=== PATIENT | female | born 1990 | race African-American/Black ===

== ENCOUNTER 2017-05-12 11:24 | Emergency (ER) | payer OTHER ==
--- NOTE | 2017-05-12 11:39 | PDOC ---
History of Present Illness - General History Source: Patient Exam Limitations: No Limitations - History of Present Illness Initial Comments: 05/12/17 12:31 The patient is a 26 year old female with a significant past medical history of asthma, and anemia, presenting to the Emergency Department with abdominal pain and vomiting for the past few days. The patient describes the abdominal pain as lower abdominal pain and epigastric burning exacerbated by eating. She admits to nausea, and vomiting after eating, as well as intermittent diarrhea. She states that her LMP was sometime this month. The patient denies dysuria, vaginal discharge, and urinary frequency. Patient denies fever, cough, and chills. Patient denies headache, or dizziness. Patient denies shortness of breath, or chest pain. PCP: Dr. Federico Gray Hx: current every day cigarette smoker Surgical Hx: x2 <Siri Serrano - Last Filed: 05/12/17 12:45> <Treasure Garrett - Last Filed: 05/12/17 13:36> - General Chief Complaint: Pain Stated Complaint: ABDOMINAL PAIN Time Seen by Provider: 05/12/17 11:39 Past History <Siri Serrano - Last Filed: 05/12/17 12:45> - Past Medical History Anemia: Yes Asthma: Yes (last attack 1 year ago) Cancer: No Cardiac Disorders: No Diabetes: No HTN: No Suicide Attempt (Hx): No Seizures: No Thyroid Disease: No - Reproductive History (#): 6 Para: 1 Cervical CA: No Dysfunctional Uterine Bleeding: No Ectopic : No Endometrial CA: No Polycystic Ovaries: No Therapeutic (s) & number: No Tubal Ligation: No Spontaneous : 3 - Immunization History Immunization Up to Date: Yes - Psycho/Social/Smoking Cessation Hx Anxiety: No Suicidal Ideation: No Smoking History: Never smoked Have you smoked in the past 12 months: No Number of Cigarettes Smoked Daily: 5 Hx Alcohol Use: No Drug/Substance Use Hx: No Substance Use Type: None Hx Substance Use Treatment: No <Treasure Garrett - Last Filed: 05/12/17 13:36> - Past Medical History Allergies/Adverse Reactions: Allergies Allergy/AdvReac Type Severity Reaction Status Date / Time Penicillins Allergy Hives Verified 05/12/17 11:44 SEAFOOD Allergy Hives Uncoded 05/12/17 11:44 Home Medications: Ambulatory Orders Albuterol Sulfate Inhaler - [Ventolin Hfa Inhaler -] 2 inh PO Q4H PRN 05/12/17 Review of Systems - Review of Systems Able to Perform ROS?: Yes Comments:: 05/12/17 12:32 CONSTITUTIONAL: Absent: fever, no chills, no fatigue EYES: Absent: visual changes ENT: Absent: ear pain, no sore throat CARDIOVASCULAR: Absent: chest pain, no palpitations RESPIRATORY: Absent: cough, no SOB GI: Present: + nausea, + vomiting, + diarrhea, + lower abdominal pain, + epigastric burning Absent: no constipation GENITOURINARY: Absent: dysuria, no frequency, no hematuria MUSCULOSKELETAL: Absent: back pain, no arthralgia, no myalgia SKIN: Absent: rash NEURO: Absent: headache <Siri Serrano - Last Filed: 05/12/17 12:45> *Physical Exam - Vital Signs Last Vital Signs Temp Pulse Resp BP Pulse Ox 98.3 F 74 18 106/82 98 05/12/17 11:37 05/12/17 11:37 05/12/17 11:37 05/12/17 11:37 05/12/17 11:37 - Physical Exam Comments: 05/12/17 12:45 GENERAL: Well-appearing, well-nourished. No apparent distress. HEENT: Normocephalic, atraumatic. PERRL, EOM intact. CARDIOVASCULAR: Normal S1, S2. Regular rate and rhythm. PULMONARY: Clear to auscultation bilaterally. ABDOMEN: Mild diffuse tenderness to deep palpation. Soft, non-distended. EXTREMITIES: Normal ROM in all four extremities. No gross deformities. SKIN: Warm, dry. No rash NEUROLOGICAL: No focal neurological deficits. <Siri Serrano - Last Filed: 05/12/17 12:45> ED Treatment Course - LABORATORY CBC & Chemistry Diagram: 05/12/17 12:15 05/12/17 12:15 <Siri Serrano - Last Filed: 05/12/17 12:45> - LABORATORY CBC & Chemistry Diagram: 05/12/17 12:15 05/12/17 12:15 <Treasure Garrett - Last Filed: 05/12/17 13:36> Medical Decision Making - Medical Decision Making 05/12/17 12:59 Pt presents to the ED complaining of diffuse abdominal pain for the last three days. Denies vomiting or fever. Denies urinary complaints. Mildly tender to deep palpation diffusely. Describes primarily burning epigastric pain that may be secondary to GERD. Patient is not . Will check labs to evaluate for pancreatits or biliary disease, do pelvic exam, likely discharge if labs are negative. <Treasure Garrett - Last Filed: 05/12/17 13:36> *DC/Admit/Observation/Transfer - Attestations Scribe Attestion: 05/12/17 12:33 Documentation prepared by Siri Serrano, acting as director of medical services for Treasure Garrett MD. <Siri Serrano - Last Filed: 05/12/17 12:45> <Treasure Garrett - Last Filed: 05/12/17 13:36> Diagnosis at time of Disposition: Abdominal pain Qualifiers: Abdominal location: generalized Qualified Code(s): R10.84 - Generalized abdominal pain - Discharge Dispostion Disposition: HOME Condition at time of disposition: Good - Referrals Referrals: Tamara Caballero [Primary Care Provider] - - Patient Instructions Printed Discharge Instructions: DI for Abdominal Pain-Adult
[2017-05-12 11:43] VITALS: BMI 46.3
[2017-05-12 12:25] LABS: BASOPHIL 0.3 % (0-2.0); EOSINOPHIL 2.7 % (0-4.5); MCH 28.4 pg (25.7-33.7); MCHC 32.5 g/dl (32.0-36.0); MEAN CELL VOLUME 87.6 fl (80-96); MEAN PLT VOLUME 7.2 fl (7.5-11.1); NEUTROPHILS 64.1 % (42.8-82.8); PLATELET COUNT 240 K/MM3 (134-434); RDW 15.3 % (11.6-15.6); WHITE BLOOD COUNT 6.2 K/mm3 (4.0-10.0)
[2017-05-12 12:40] LABS: URINE APPEARANCE SLCLOUDY; URINE BILIRUBIN NEGATIVE (NEGATIVE); URINE BLOOD NEGATIVE (NEGATIVE); URINE COLOR YELLOW; URINE GLUCOSE (UA) NEGATIVE (NEGATIVE); URINE KETONE TRACE (NEGATIVE); URINE NITRITE NEGATIVE (NEGATIVE); URINE UROBILINOGEN 2.0 E.U/dl E.U./dl (0.2-1.0)
[2017-05-12 12:44] LABS: ALBUMIN 3.2 g/dl (3.4-5.0); ANION GAP 7 (8-16); BILIRUBIN,TOTAL 0.6 mg/dL (0.2-1.0); CALCIUM 9.3 mg/dL (8.5-10.1); CO2 29 mmol/L (21-32); CREATININE 0.6 mg/dL (0.55-1.02); GLUCOSE,RANDOM 83 mg/dL (74-106); SGPT/ALT 18 U/L (12-78); TOT PROT 7.5 g/dl (6.4-8.2)
[2017-05-12 12:45] LABS: ALK PHOS 90 U/L (45-117)
[2017-05-12 12:49] LABS: URINE LEUK ESTERASE 1+ (NEGATIVE); URINE PROTEIN 1+ (NEGATIVE)
[2017-05-12 12:52] LABS: SGOT/AST 32 U/L (15-37)
[2017-05-12 12:58] LABS: HIV 1 & 2 AB NEGATIVE; HIV 1 AGp24 NEGATIVE
[2017-05-12] MEDS ORDERED: FAMOTIDINE 20 MG/50 ML IVPB 50 ML IVPB ONE (13:42)
[2017-05-12] MEDS ORDERED: FAMOTIDINE 20 MG/50 ML IVPB 50 ML IVPB SCH (13:45)
[2017-05-12 14:18] VITALS: BP 116/60; PULSE 76; TEMP 98.4
== END 2017-05-12 14:54 | disposition home or self-care (01) ==
LOC: JER 11:24
PROC: 3E033GC Introduction of Other Therapeutic Substance into Peripheral Vein, Percutaneous Approach (ICD-10-PCS; principal; 2017-05-12)
DX: R10.84 Generalized abdominal pain (principal); J45.909 Unspecified asthma, uncomplicated; D64.9 Anemia, unspecified
CPT/HCPCS: 36415; 80053; 81003; 81015; 83690; 84703; 85025; 87389; 87491; 87591; 96365; 99283-25

== ENCOUNTER 2017-06-20 00:42 | Emergency (ER) | payer OTHER ==
--- NOTE | 2017-06-20 01:35 | PDOC ---
History of Present Illness - General Stated Complaint: ANKLE INJURY Time Seen by Provider: 06/20/17 01:15 History Source: Patient Exam Limitations: No Limitations - History of Present Illness Initial Comments: CHIEF COMPLAINT: 26 y/o morbidly obese female with PMH asthma c/o right ankle pain since slip and fall tonight. HISTORY OF PRESENT ILLNESS: The patient states the ground was uneven and she twisted her right ankle in an inversion fashion. She has not tried to walk on it because it hurts. She denies numbness/tingling. She has not taken anything for the pain. Vital signs on arrival are notable for pulse of 108. REVIEW OF SYSTEMS: GENERAL/CONSTITUTIONAL: No fever/chills. No weakness. No weight change. MUSCULOSKELETAL: +right ankle pain and swelling. No neck or back pain. SKIN: No rash or easy bruising. NEUROLOGIC: No headache, vertigo, loss of consciousness, or loss of sensation. PHYSICAL EXAM: VITAL_SIGNS: within normal limits GENERAL_APPEARANCE: alert, cooperative, no obvious discomfort. The patient is morbidly obese, in a wheelchair. MENTAL_STATUS: speech clear, oriented X 3, responds appropriately to questions. NEURO: motor intact and sensory intact in injured extremity. EXTREMITIES: 2+ right dorsalis pedis pulse. Minimal edema to right lateral malleolus with reproducible pain with palpation of that area. No erythema, warmth or obvious deformities. Full inversion, eversion, plantar and dorsi flexion of right ankle. SKIN: warm, dry, good color. Past History - Past Medical History Allergies/Adverse Reactions: Allergies Allergy/AdvReac Type Severity Reaction Status Date / Time Penicillins Allergy Hives Verified 05/12/17 11:44 SEAFOOD Allergy Hives Uncoded 05/12/17 11:44 Home Medications: Ambulatory Orders Albuterol Sulfate Inhaler - [Ventolin Hfa Inhaler -] 2 inh PO Q4H PRN 05/12/17 Anemia: Yes Asthma: Yes (last attack 1 year ago) Cancer: No Cardiac Disorders: No Diabetes: No HTN: No Suicide Attempt (Hx): No Seizures: No Thyroid Disease: No - Reproductive History (#): 6 Para: 1 Cervical CA: No Dysfunctional Uterine Bleeding: No Ectopic : No Endometrial CA: No Polycystic Ovaries: No Therapeutic (s) & number: No Tubal Ligation: No Spontaneous : 3 - Immunization History Immunization Up to Date: Yes - Psycho/Social/Smoking Cessation Hx Anxiety: No Suicidal Ideation: No Smoking History: Never smoked Have you smoked in the past 12 months: No Number of Cigarettes Smoked Daily: 5 'Breaking Loose' booklet given: 05/12/17 Hx Alcohol Use: No Drug/Substance Use Hx: No Substance Use Type: None Hx Substance Use Treatment: No Medical Decision Making - Medical Decision Making A/P: 26 y/o afebrile female with most likely right ankle sprain. Plan is as follows: 1. xray right ankle/foot Xray right foot/ankle IMPRESSION: No acute fracture. Will discharge the patient to home with dx of ankle sprain. Will provide aircast. Suggested RICE instructions. Pt given referral to ortho and instructed to f/u within 2 weeks if no improvement in symptoms. The patient verbalizes understanding of all instructions, has no further questions and is awaiting discharge. *DC/Admit/Observation/Transfer Diagnosis at time of Disposition: Right ankle sprain Qualifiers: Encounter type: initial encounter Involved ligament of ankle: unspecified ligament Qualified Code(s): S93.401A - Sprain of unspecified ligament of right ankle, initial encounter - Discharge Dispostion Disposition: HOME Condition at time of disposition: Good - Referrals Referrals: Tamara Caballero [Primary Care Provider] - Chato Juarez MD [Staff Physician] - 14 days - Patient Instructions Printed Discharge Instructions: DI for Ankle Sprain, How To Perform RICE (Rest , Ice, Compress, Elevate) Additional Instructions: Discharge Instructions: -Use aircast for comfort -Follow RICE instructions -Take Motrin if needed every 6 hours for pain -If no improvement in symptoms in [address] Juarez for follow up appointment
[2017-06-20 02:36] VITALS: BP 120/88; PULSE 76; TEMP 98.1; BMI 36.6
== END 2017-06-20 02:42 | disposition home or self-care (01) ==
LOC: JER 00:42
PROC: 2W3QX1Z Immobilization of Right Lower Leg using Splint (ICD-10-PCS; principal; 2017-06-20)
DX: S93.401A Sprain of unspecified ligament of right ankle, initial encounter (principal); X50.1XXA Overexertion from prolonged static or awkward postures, initial encounter; W18.39XA Other fall on same level, initial encounter; Y93.89 Activity, other specified; Y92.480 Sidewalk as the place of occurrence of the external cause
CPT/HCPCS: 73610-TC-RT; 73630-TC-RT; 99282-25

== ENCOUNTER 2019-10-25 16:28 | Emergency (ER) | payer OTHER ==
[2019-10-25 16:37] VITALS: TEMP 98.7; BMI 48.5
[2019-10-25 17:34] LABS: BASO % 0.4 % (0-2.0); EOS % 2.7 % (0-4.5); HEMATOCRIT 39.8 % (32.4-45.2); HEMOGLOBIN 12.7 GM/dL (10.7-15.3); LYMPH % 33.6 % (8-40); MCH 27.3 pg (25.7-33.7); MCHC 31.9 g/dl (32.0-36.0); MEAN CELL VOLUME 85.7 fl (80-96); MEAN PLT VOLUME 6.7 fl (7.5-11.1); NEUT % 58.3 % (42.8-82.8); PLATELET COUNT 279 K/MM3 (134-434); RBC 4.64 M/mm3 (3.60-5.2); RDW 17.2 % (11.6-15.6); WHITE BLOOD COUNT 7.4 K/mm3 (4.0-10.0)
[2019-10-25 17:36] LABS: EPI CELLS 1.6 /HPF (0-5/HPF); HYALINE CASTS 0 /lpf (0-8); PH,URINE 8.5 (5.0-8.0); URINE APPEARANCE CLOUDY; URINE BACTERIA 29.2 /hpf (NEGATIVE); URINE BILIRUBIN NEGATIVE (NEGATIVE); URINE COLOR RED; URINE GLUCOSE (UA) NEGATIVE (NEGATIVE); URINE KETONE NEGATIVE (NEGATIVE); URINE LEUK ESTERASE TRACE (NEGATIVE); URINE NITRITE NEGATIVE (NEGATIVE); URINE PROTEIN TRACE (NEGATIVE); URINE RBC 653 /hpf (0-4); URINE WBC 4 /hpf (0-5)
[2019-10-25] MEDS ORDERED: ACETAMINOPHEN 1000 MG/100 ML VIAL (NON FORMULARY) IVPB ONE (17:36)
--- NOTE | 2019-10-25 17:38 | PDOC ---
Documentation entered by Maria A Spears SCRIBE, acting as scribe for Katy Arambula MD. Katy Arambula MD: This documentation has been prepared by the scribe, Maria A Spears SCRIBE, under my direction and personally reviewed by me in its entirety. I confirm that the documentation accurately reflects all work, treatment, procedures, and medical decision making performed by me. Attending Attestation - Resident Resident Name: Chato Ruffin - ED Attending Attestation I have performed the following: I have examined & evaluated the patient, The case was reviewed & discussed with the resident, I agree w/resident's findings & plan, Exceptions are as noted - HPI HPI: 10/25/19 18:05 The patient is a 29-year-old female, with no reported past medical history who presents to the emergency department with vaginal bleeding. The patient reports a history of high-risk , secondary to loss of amniotic fluids, for which the was induced. LMP: 8 weeks ago by the day. SHIP RIGGER: at [address] [facility]. - Physicial Exam PE: 10/25/19 18:06 GENERAL: Well-appearing, well-nourished. No apparent distress. HEENT: Normocephalic, atraumatic. PERRL, EOM intact. CARDIOVASCULAR: Normal S1, S2. Regular rate and rhythm. PULMONARY: Clear to auscultation bilaterally. ABDOMEN: Soft, non-distended, non-tender. PELVIC EXAM: Os closed, no large clot, little blood in the vault, no CMT tenderness. EXTREMITIES: Normal ROM in all four extremities. No gross deformities. SKIN: Warm, dry. No rash NEUROLOGICAL: No focal neurological deficits. - Medical Decision Making 10/25/19 17:29 29 yo female presents stating she may be having an miscarriage no lg clots blood in the vault no CMT bi devang exam follows t [address] [facility] threatened ab vs ectopic preg plan cg, t& S, US pelvic 10/25/19 17:37 10/25/19 18:42 Transvaginal ultrasound shows a thickened endometrium, no visible gestational sac within the uterus. An ectopic cannot be ruled out. No free fluid in the cul-de-sac and both ovaries are normal in appearance 10/25/19 18:45 Blood type O+ Beta-hCG 1251 10/25/19 18:46 The patient will have to have a repeat beta-hCG repeat pelvic ultrasound in 48 hours to help rule out ectopic. Impression threatened AB versus ectopic Patient needs follow-up with [facility] in 48 hours or return to the emergency department for repeat imaging and beta-hCG
[2019-10-25] MEDS ORDERED: ACETAMINOPHEN INJECTION 100 ML IVPB ONE (17:48)
--- NOTE | 2019-10-25 17:55 | PDOC ---
History of Present Illness - General Chief Complaint: Vaginal Bleeding Stated Complaint: MISCARRIAGE Time Seen by Provider: 10/25/19 16:44 History Source: Patient Exam Limitations: No Limitations - History of Present Illness Initial Comments: 10/26/19 13:39 HPI: 29F A2 at 8wk gestation by dates, LMP "2 months ago," c/o 1 day of vaginal bleeding and abdominal cramping. Bleeding started when patient woke up around 11 :30, initially light then became heavier w/ clot passage. Pt went to toilet and did not use pads to quantify bleeding. Denies f/c, cp/palpitations/sob, lightheadedness, dizziness, headache. Endorses dysuria today. Abd cramping is suprapubic, constant, worse than period pain. Hx 2 c-sections, 2 elective D&C, 1 high risk 2/2 loss of amniotic fluid. Monogamous, no concerns for STI. PMH: Asthma MEDs: albuterol Allergies reviewed - Penicillin Endorses smoking Past History - Past Medical History Allergies/Adverse Reactions: Allergies Allergy/AdvReac Type Severity Reaction Status Date / Time Penicillins Allergy Hives Verified 10/25/19 16:37 SEAFOOD Allergy Hives Uncoded 10/25/19 16:37 Home Medications: Ambulatory Orders Albuterol Sulfate Inhaler - [Ventolin Hfa Inhaler -] 2 inh PO Q4H PRN 05/12/17 Anemia: Yes Asthma: Yes (last attack 1 year ago) Cancer: No Cardiac Disorders: No COPD: No Diabetes: No HTN: No Seizures: No Thyroid Disease: No - Reproductive History (#): 6 Para: 1 Cervical CA: No Dysfunctional Uterine Bleeding: No Ectopic : No Endometrial CA: No Polycystic Ovaries: No Therapeutic (s) & number: No Tubal Ligation: No Spontaneous : 3 - Immunization History Immunization Up to Date: Yes - Psycho Social/Smoking Cessation Hx Smoking History: Never smoked Have you smoked in the past 12 months: No Number of Cigarettes Smoked Daily: 10 'Breaking Loose' booklet given: 05/12/17 Hx Alcohol Use: No Drug/Substance Use Hx: No Substance Use Type: None Hx Substance Use Treatment: No Review of Systems - Review of Systems Able to Perform ROS?: Yes Comments:: 10/26/19 13:40 ROS: CONSTITUTIONAL: Denies F / C HEENT: Denies headache, lightheadedness, dizziness, changes in vision / hearing , diplopia, blurry vision RESP: Denies SOB, cough CARD: Denies chest pain, palpitations GI: Endorses AM nausea (no current sx). Endorses abdominal cramping. Denies V / D, bloody stool, inability to tolerate PO : Endorses vaginal bleeding, dysuria today. Denies frequency. SKIN: Denies rashes Is the patient limited [place] proficient: No *Physical Exam - Vital Signs Last Vital Signs Temp Pulse Resp BP Pulse Ox 98.7 F 83 14 115/73 100 10/25/19 16:35 10/25/19 16:40 10/25/19 16:35 10/25/19 16:40 10/25/19 16:35 - Physical Exam 10/26/19 13:40 PE: GEN: NAD, tearful. AAOx3 HEENT: NC/AT. No facial asymmetry. Normal voice. Supple neck w/ FROM. CV: S1/S2, RRR, no m/r/g LUNG: CTAB, no wheezes, crackles, rales, rhonchi. GI: soft, ndnt, +BS, no guarding, no rebound. Neg CVAT b/l. PELVIC: No discharge, bleeding, and atrophy on inspection. Cervical os not well visualized. There is blood in vault. Neg CMT on bimanual exam. EXTREMITIES: No obvious deformities of all extremities. SKIN: warm, dry, normal turgor PSYCH: normal mood and affect; tearful NEURO: Moving all extremities well. Ambulates w/ normal gait. ED Treatment Course - LABORATORY CBC & Chemistry Diagram: 10/25/19 17:15 10/25/19 17:15 - RADIOLOGY Radiology Studies Ordered: Category Date Time Status TRANSVAGINAL US PREG [US] Stat Ultrasound 10/25/19 17:11 Ordered Medical Decision Making - Medical Decision Making 10/25/19 17:33 MDM: 29F A2 at 8wk gestation by dates with one day of vaginal bleeding and cramping. Blood in vault, neg CMT. DDx likely threatened ; consider ectopic - CBC, CMP, T&S, hCG - UA, UC - TVUS - Pain ctrl 10/25/19 18:52 TVUS IOC IMPRESSION: Thickened endometrium. No visible gestational sac within the uterus. An ectopic cannot be excluded. No fluid in the cul-de-sac. Both ovaries are normal in appearance. labs reviewed; hGB 1251.5 DC home w/ strict return precautions and 48h f/u at OB or ED for levels and rpt TVUS Discharge - Discharge Information Problems reviewed: Yes Clinical Impression/Diagnosis: Threatened Condition: Stable Disposition: HOME - Admission No - Follow up/Referral - Patient Discharge Instructions Patient Printed Discharge Instructions: DI for Threatened Additional Instructions: A copy of your ultrasound was provided to you along with your level. Your level today 10/25/19 was: B hCG 1251.5 Take Tylenol as directed on the label for pain. RETURN TO THE EMERGENCY DEPARTMENT OR YOUR CLAIM PROCESSOR IN 48 HOURS FOR FOLLOW UP OF THESE LEVELS AND ANOTHER ULTRASOUND. IMMEDIATELY RETURN TO THE EMERGENCY DEPARTMENT IF YOU EXPERIENCE ANY OF THE FOLLOWING: - WORSENING PAIN - HEAVY BLEEDING (SOAKING 1 PAD AN HOUR FOR 2 STRAIGHT HOURS) - CHEST PAIN, SHORTNESS OF BREATH, FAINTING - ANYTHING THAT CONCERNS YOU - Post Discharge Activity
[2019-10-25 18:32] LABS: ALBUMIN 3.2 g/dl (3.4-5.0); BILIRUBIN,TOTAL 0.4 mg/dL (0.2-1); BLOOD UREA NITROGEN 8.6 mg/dL (7-18); CALCIUM 8.8 mg/dL (8.5-10.1); CREATININE 0.6 mg/dL (0.55-1.3); POTASSIUM 4.2 mmol/L (3.5-5.1); TOT PROT 6.9 g/dl (6.4-8.2)
[2019-10-25 19:22] VITALS: BP 118/83; PULSE 62
== END 2019-10-25 19:23 | disposition home or self-care (01) ==
LOC: JER 16:28
PROC: 3E033NZ Introduction of Analgesics, Hypnotics, Sedatives into Peripheral Vein, Percutaneous Approach (ICD-10-PCS; principal; 2019-10-25)
DX: O20.0 Threatened abortion (principal); Z3A.08 8 weeks gestation of pregnancy; Z88.0 Allergy status to penicillin; Z91.013 Allergy to seafood
CPT/HCPCS: 36415; 76817-TC; 80053; 81003; 84702; 85025; 86850; 86900; 86901; 87086; 96374; 99283-25; J0131

== ENCOUNTER 2019-10-28 10:19 | Emergency (ER) | payer OTHER ==
[2019-10-28 10:28] VITALS: BP 108/70; PULSE 68; TEMP 97.7; BMI 48.5
--- NOTE | 2019-10-28 10:38 | PDOC ---
History of Present Illness - General Chief Complaint: [facility] [place] Stated Complaint: BETA HCG LEVEL CHECK Time Seen by Provider: 10/28/19 10:27 History Source: Patient - History of Present Illness Timing/Duration: other Past History - Past Medical History Allergies/Adverse Reactions: Allergies Allergy/AdvReac Type Severity Reaction Status Date / Time Penicillins Allergy Hives Verified 10/28/19 10:28 SEAFOOD Allergy Hives Uncoded 10/28/19 10:28 Home Medications: Ambulatory Orders Albuterol Sulfate Inhaler - [Ventolin Hfa Inhaler -] 2 inh PO Q4H PRN 05/12/17 Anemia: Yes Asthma: Yes (last attack 1 year ago) Cancer: No Cardiac Disorders: No COPD: No Diabetes: No HTN: No Seizures: No Thyroid Disease: No - Reproductive History (#): 6 Para: 1 Cervical CA: No Dysfunctional Uterine Bleeding: No Ectopic : No Endometrial CA: No Polycystic Ovaries: No Therapeutic (s) & number: No Tubal Ligation: No Spontaneous : 3 - Immunization History Immunization Up to Date: Yes - Psycho Social/Smoking Cessation Hx Smoking History: Never smoked Have you smoked in the past 12 months: No Number of Cigarettes Smoked Daily: 10 Information on smoking cessation initiated: No 'Breaking Loose' booklet given: 05/12/17 Hx Alcohol Use: No Drug/Substance Use Hx: No Substance Use Type: None Hx Substance Use Treatment: No Review of Systems - Review of Systems Constitutional: No: Fever ABD/GI: No: Nausea, Vomiting, Abdominal cramping : No: Dysuria *Physical Exam - Vital Signs Last Vital Signs Temp Pulse Resp BP Pulse Ox 97.7 F 68 19 108/70 100 10/28/19 10:25 10/28/19 10:25 10/28/19 10:25 10/28/19 10:25 10/28/19 10:25 - Physical Exam General Appearance: Yes: Appropriately Dressed. No: Apparent Distress HEENT: positive: Normal Voice Neck: positive: Supple Respiratory/Chest: negative: Respiratory Distress Gastrointestinal/Abdominal: positive: Normal Bowel Sounds, Soft. negative: Tender, Distended, Guarding, Rebound Integumentary: positive: Dry, Warm Neurologic: positive: Fully Oriented, Alert, Normal Mood/Affect ED Treatment Course - RADIOLOGY Radiology Studies Ordered: Category Date Time Status TRANSVAGINAL US PREG [US] Stat Ultrasound 12/04/19 10:35 Ordered Medical Decision Making - Medical Decision Making 10/28/19 13:42 29 F, , ~8 weeks by dates, seen in ED 3 days ago for vag bleed/cramping. 1200 w/ no IUP on US, told to return today for f/u beta/ and US. Ucx neg for growth aand RH + on pror visit. ates she continues to have some bleeding, no clots and states abdominal cramping has since improved. No nausea vomiting fever or chills M/l spon AB Beta >100 today, was >1200 on prior visit No IUP or adnexal abnl on US -Dc to f/u with OB at this point to continue trending beta Discharge - Discharge Information Problems reviewed: Yes Clinical Impression/Diagnosis: Spontaneous Condition: Good Disposition: HOME - Follow up/Referral - Patient Discharge Instructions Patient Printed Discharge Instructions: Miscarriage Additional Instructions: Beta today was only 195 down from over 12,000 on your prior visit. Ultrasound done today shows no evidence of a . This most likely means you having a miscarriage. You need to follow-up with your OB at this point to trend your beta hCG - Post Discharge Activity
== END 2019-10-28 13:00 | disposition left against medical advice (07) ==
LOC: JERFT 10:19
DX: O03.9 Complete or unspecified spontaneous abortion without complication (principal); Z88.0 Allergy status to penicillin; Z91.013 Allergy to seafood
CPT/HCPCS: 36415; 76817-TC; 84702; 99281-25

== ENCOUNTER 2020-08-09 17:25 | Emergency (ER) | payer OTHER ==
--- NOTE | 2020-08-09 17:45 | PDOC ---
Rapid Medical Evaluation Time Seen by Provider: 08/09/20 17:44 Medical Evaluation: Allergies Allergy/AdvReac Type Severity Reaction Status Date / Time Penicillins Allergy Hives Verified 08/09/20 17:44 SEAFOOD Allergy Hives Uncoded 08/09/20 17:44 08/09/20 17:44 I have performed a brief in-person evaluation of this patient The patient presents with a chief complaint of: Irreg vag bleeding x 6 month while on depo. Have [facility] appt this Saturday to switch control but states she woke up feeling dizzy and weak today. H/o ectopic 6 months ago, s/p L sapingectomy and placed on depo then. Also has h/o anemia s/p blood transfusion x 2 and non-compliant w/ her iron 2/2 "stomach issues". Has numerous psych e ncounters here but unable to see records Pertinent physical exam findings:stable, NAD, alert I have ordered the following:labs/urine The patient will proceed to the ED for further evaluation Discharge Disposition - Diagnosis DUB (dysfunctional uterine bleeding), Weakness - Referrals - Patient Instructions - Post Discharge Activity
[2020-08-09 17:48] VITALS: BP 116/61; PULSE 76; TEMP 97.6; BMI 36.0
[2020-08-09 18:46] LABS: BASO % 0.7 % (0-2.0); EOS % 3.4 % (0-4.5); HEMATOCRIT 35.7 % (32.4-45.2); LYMPH % 29.8 % (8-40); MCH 29.2 pg (25.7-33.7); MCHC 33.5 g/dl (32.0-36.0); MEAN CELL VOLUME 87.1 fl (80-96); MEAN PLT VOLUME 6.5 fl (7.5-11.1); MONO % 3.7 % (3.8-10.2); NEUT % 62.4 % (42.8-82.8); PLATELET COUNT 279 K/MM3 (134-434); RDW 17.4 % (11.6-15.6); WHITE BLOOD COUNT 7.7 K/mm3 (4.0-10.0)
[2020-08-09 18:57] LABS: INR 1.16 (0.83-1.09); PROTHROMBIN TIME (PATIENT) 13.7 SEC (9.7-13.0)
--- NOTE | 2020-08-09 19:23 | PDOC ---
History of Present Illness - General Chief Complaint: Vaginal Bleeding Stated Complaint: WEAK Time Seen by Provider: 08/09/20 17:44 History Source: Patient - History of Present Illness Initial Comments: 08/09/20 20:00 29-year-old female complaining of return to the ER if you are soaking 2 pads per hour, severe abdominal pain, or worsening symptoms. For the last 6 months after stopping Depakote. Patient reports that she has been using a tampon changes the tampon a every 20 minutes or so. Patient reports that she is scheduled for [facility] visit however felt weakness today. Past History - Medical History Allergies/Adverse Reactions: Allergies Allergy/AdvReac Type Severity Reaction Status Date / Time Penicillins Allergy Hives Verified 08/09/20 17:44 SEAFOOD Allergy Hives Uncoded 08/09/20 17:44 Home Medications: Ambulatory Orders NK [No Known Home Medication] 08/09/20 Anemia: Yes (transfused twice in past) Asthma: Yes Cancer: No Cardiac Disorders: No COPD: No Diabetes: No HTN: No Seizures: No Thyroid Disease: No - Reproductive History Is Patient Now?: No (#): 7 Para: 2 Cervical CA: No Dysfunctional Uterine Bleeding: No Ectopic : Yes (01/2020) Endometrial CA: No Polycystic Ovaries: No Therapeutic (s) & number: No Tubal Ligation: No Spontaneous : 3 - Immunization History Immunization Up to Date: Yes - Psycho-Social/Smoking History Smoking History: Never smoked Have you smoked in the past 12 months: Yes Number of Cigarettes Smoked Daily: 10 Information on smoking cessation initiated: No 'Breaking Loose' booklet given: 01/30/20 - Substance Abuse Hx (Audit-C & DAST Scrn) How often the patient has a drink containing alcohol: Never Score: In Men: 4 or > Positive; In Women: 3 or > Positive: 0 Screen Result (Pos requires Nsg. Audit-10AR): Negative In the last yr the pt used illegal drug/Rx for NonMed reason: No Score: Yes response is considered Positive: 0 Screen Result (Positive result requires Nsg. DAST-10): Negative Review of Systems - Review of Systems Able to Perform ROS?: Yes Is the patient limited Algerian proficient: No Constitutional: No: Symptoms Reported, See HPI, Chills, Diaphoresis, Fever, Loss of Appetite, Malaise, Night Sweats, Weakness, Weight Stable, Unintentional Wgt. Loss, Unexplained wgt Loss, Other ABD/GI: Yes: Other (vaginal bleeding) *Physical Exam - Vital Signs Last Vital Signs Temp Pulse Resp BP Pulse Ox 97.6 F 76 16 116/61 99 08/09/20 17:45 08/09/20 17:45 08/09/20 17:45 08/09/20 17:45 08/09/20 17:45 - Physical Exam General Appearance: Yes: Appropriately Dressed Respiratory/Chest: positive: Lungs Clear, Normal Breath Sounds Female Pelvic Exam: positive: normal external exam, other (scANt amount of brown / red bleeding in vaginal vault. ) Gastrointestinal/Abdominal: positive: Normal Bowel Sounds, Soft. negative: Tender Musculoskeletal: negative: CVA Tenderness Extremity: positive: Normal Capillary Refill, Normal Inspection, Normal Range of Motion Integumentary: positive: Normal Color, Dry, Warm Neurologic: positive: Fully Oriented, Alert, Normal Mood/Affect ED Treatment Course - LABORATORY CBC & Chemistry Diagram: 08/09/20 18:30 08/09/20 18:30 - ADDITIONAL ORDERS Additional order review: Laboratory Results 08/09/20 08/09/20 18:48 18:30 PT with INR 13.70 H INR 1.16 H Urine HCG, Qual Negative 08/09/20 18:30 RBC 4.10 MCV 87.1 MCHC 33.5 RDW 17.4 H MPV 6.5 L Neutrophils % 62.4 D Lymphocytes % 29.8 D Monocytes % 3.7 L D Eosinophils % 3.4 D Basophils % 0.7 D ED Progress Note - Progress Note Progress Note: A: DUB: P: cbc cmp urine : negative Discharge - Discharge Information Problems reviewed: Yes Clinical Impression/Diagnosis: Weakness, DUB (dysfunctional uterine bleeding) Disposition: HOME - Follow up/Referral Referrals: Tamara Caballero [Primary Care Provider] - - Patient Discharge Instructions Patient Printed Discharge Instructions: DI for Vaginal Bleeding Additional Instructions: Follow-up with your primary doctor or costume cutter as soon as possible. return to the ER if you are soaking 2 pads per hour, severe abdominal pain, or worsening symptoms. - Post Discharge Activity Work/Back to School Note: Back to Work
[2020-08-09 19:25] LABS: ALBUMIN 3.1 g/dl (3.4-5.0); BILIRUBIN,TOTAL 0.3 mg/dL (0.2-1); BLOOD UREA NITROGEN 11.6 mg/dL (7-18); CALCIUM 8.9 mg/dL (8.5-10.1); CREATININE 0.8 mg/dL (0.55-1.3)
--- OUTSIDE RECORDS SUMMARY | 2020-08-09 19:37 | XMS ---
:1990 Author Organization [facility] Care Team Providers Name Role Phone Komannor, Andres Unavailable Unavailable Kovoor, Andres Unavailable Unavailable Kovoor, Andres Unavailable Unavailable Kovoor, Andres Unavailable Unavailable Kovoor, Andres Unavailable Unavailable Kovoor, Andres Unavailable Unavailable Kovoor, Andres Unavailable Unavailable Kovoor, Andres Unavailable Unavailable Kovoor, Andres Unavailable Unavailable Kovoor, Andres Unavailable Unavailable Kovoor, Andres Unavailable Unavailable Shamar Bourgeois Unavailable [phone] Rashaun Trujillo Unavailable Unavailable ED STAFF PHYSICIAN, STAFF Unavailable Unavailable Dang, Debbie Unavailable [phone] Adng, Debbie Unavailable [phone] Quinn Tate MD Unavailable Quinn Tate MD Unavailable Quinn Tate MD Unavailable Quinn Tate MD Unavailable Quinn Tate MD Unavailable Quinn Tate MD Unavailable Quinn Tate MD Unavailable Nav, Hany Unavailable [phone] Nav, Hany Unavailable [phone] Nav, Hany Unavailable [phone] Nav, Hany Unavailable [phone] Nav, Hany Unavailable [phone] Gaviota Hanley MD Unavailable Unavailable Gaviota Hanley MD Unavailable Unavailable Richard, Erin Unavailable Unavailable Richard, Erin Unavailable Unavailable Richard, Erin Unavailable Unavailable Richard, Erin Unavailable Unavailable Richard, Erin Unavailable Unavailable Richard, Erin Unavailable Unavailable Richard, Erin Unavailable Unavailable Richard, Erin Unavailable Unavailable Richard, Erin Unavailable Unavailable Richard, Erin Unavailable Unavailable ARIEL JESSY A, JESSY Unavailable Unavailable Nav, Lester Unavailable Unavailable Nav, Lester Unavailable Unavailable Nav, Lester Unavailable Unavailable Nav, Lester Unavailable Unavailable Nav, Lester Unavailable Unavailable Nav, Lester Unavailable Unavailable Nav, Lester Unavailable Unavailable Marga, Kellee Unavailable [phone] Marga, Kellee Unavailable [phone] Parrish, Kena Raquel Unavailable Unavailable Parrish, Kena Raquel Unavailable Unavailable Santana, Edward Unavailable Unavailable Cheryl, Howard Unavailable Unavailable Ubayawardena, Resika Unavailable Unavailable Ubayawardena, Resika Unavailable Unavailable Ubayawardena, Resika Unavailable Unavailable Ubayawardena, Resika Unavailable Unavailable Ubayawardena, Resika Unavailable Unavailable Miner, Kofi Unavailable [phone] Miner, Kofi Unavailable [phone] Emily Freedman MD Unavailable Unavailable Rosetta Freedman MD Unavailable Unavailable Rosetta Freedman MD Unavailable Unavailable Rosetta Freedman MD Unavailable Unavailable Rosetta Freedman MD Unavailable Unavailable Rosetta Freedman MD Unavailable Unavailable Rosetta Freedman MD Unavailable Unavailable Rosetta Freedman MD Unavailable Unavailable Rosetta Freedman MD Unavailable Unavailable Rosetta Freedman MD Unavailable Unavailable Rosetta Freedman MD Unavailable Unavailable Rosetta Freedman MD Unavailable Unavailable Rosetta Freedman MD Unavailable Unavailable Rosetta Freedman MD Unavailable Unavailable Rosetta Freedman MD Unavailable Unavailable Rene Unavailable [phone] Rene Unavailable [phone] Safo-Petey Unavailable [phone] Safo-Petey Unavailable [phone] Re-disclosure Warning The records that you are about to access may contain information from federally- assisted alcohol or drug abuse programs. If such information is present, then the following federally mandated warning applies: This information has been disclosed to you from records protected by federal confidentiality rules (42 CFR part 2). The federal rules prohibit you from making any further disclosure of this information unless further disclosure is expressly permitted by the written consent of the person to whom it pertains or as otherwise permitted by 42 CFR part 2. A general authorization for the release of medical or other information is NOT sufficient for this purpose. The Federal rules restrict any use of the information to criminally investigate or prosecute any alcohol or drug abuse patient.The records that you are about to access may contain highly sensitive health information, the redisclosure of which is protected by Article 27-F of the [facility] Public Health law. If you continue you may haveaccess to information: Regarding HIV / AIDS; Provided by facilities licensed or operated by the [facility] Office of Mental Health; or Provided by the [facility] Office for People With Developmental Disabilities. If such information is present, then the following [facility] mandated warning applies: This information has been disclosed to you from confidential records which are protected by state law. State law prohibits you from making any further disclosure of this information without the specific written consent of the person to whom it pertains, or as otherwise permitted by law. Any unauthorized further disclosure in violation of state law may result in a fine or residential sentence or both. A general authorization for the release of medical or other information is NOT sufficient authorization for further disclosure. Allergies and Adverse Reactions Type Description Substance Reaction Status Data Source(s ) seafood seafood seafood rash Active eCW2 ([facility]) Drug allergy Penicillamine Penicillamine anaphylaxis Active eCW2 ([facility]) propensity to Substance with Penicillins Active NEXTGE N ([facility] reactions to [facility] drug antibacterial Center) mechanism of action (substance) Food allergy Fish Synonym(s): BONY Localized Active [place] FISH FLESH; superficial Health Syste m MINCED FISH swelling of skin Weal Drug allergy penicillin G penicillin G Weal Localized Active [facility] potassium potassium superficial Health System swelling of skin Family History Family Member Family Member Family Member Date of Description Data Source(s) Name Gender Status Status Unknown Female Problem 10/31/2012 NEXTGEN ([facility] 12:00:00 AM [facility]) Encounters Encounter Providers Location Date Indications Data Source(s ) Attender: [facility] 07/08/2020 ANY N ([facility] 11:33:00 [facility] 07/08/2020 11:33:00 AM EDT Outpatient 07/01/2020 [facility] 10:20:00 [facility] AM EDT Outpatient 07/01/2020 [facility] 12:00:00 [facility] AM EDT Outpatient 06/30/2020 [facility] 12:41:00 [facility] PM EDT Outpatient 06/30/2020 [facility] 12:00:00 [facility] AM EDT Outpatient Attender: Erin Rodriguez 04/29/2020 [facility] VelezAdmitter: 01:43:00 Medical nter Erin PM EDT VelezReferrer: Erin Richard OutpatientOFFICE/ Attender: [facility] 04/29/2020 DINAH KAT ([facility] VISIT, [facility] 01:43:00 [facility] Medical EST PM EDT - Center) 04/29/2020 01:43:00 PM EDT Outpatient 04/29/2020 [facility] 09:58:00 [facility] AM EDT Outpatient 04/29/2020 [facility] 12:00:00 [facility] AM EDT - 08/11/2019 12:00:00 AM EDT Emergency Attender: STAFF H 02/15/2020 [facility] ED STAFF 11:30:00 [facility] PHYSICIAN PM EDT - 02/16/2020 02:50:00 AM EDT Patient discharged. Attender: [facility] 12/17/2019 ANY N [facility] 04:41:00 PM EST - [facility] 12/17/2019 [place]) 04:41:00 PM EST Outpatient 10/28/2019 [facility] 10:28:00 AM EST Medical C enter Outpatient 10/28/2019 [facility] 12:00:00 AM EST Medical C enter Outpatient 10/21/2019 [facility] 11:31:00 AM EST Medical C enter Outpatient Attender: Erin Rodriguez 10/21/2019 [facility] lashonda VelezAdmitter: 09:25:00 AM EST Medic al Center Erin RichardReferrer: Erin Richard OutpatientOFFICE/OU Attender: [facility] 10/21/2019 NEXTGEN ([facility], [facility] 09:25:00 AM [facility] 10/21/2019 Center) 09:25:00 AM EST Outpatient 10/21/2019 [facility] 12:00:00 AM EST Medical C [facility] 10/20/2019 ANY N ([facility] 10:21:[address] [facility] 10/20/2019 Center) 10:21:00 AM EST Outpatient 10/19/2019 [facility] 10:06:00 AM EST Medical C enter Outpatient 10/19/2019 [facility] 12:00:00 AM EST Medical C enter Emergency H 08/28/2019 [facility] 02:30:00 PM EDT - [facility] 08/28/2019 06:15:00 PM EDT Patient discharged. Inpatient Attender: JESSY GEORGE H-HAL2 08/04/2019 07:23:00 PM [facility] JESSY AAdmitter: JESSY EDT - 08/11/2019 [facility] JESSY AReferrer: 01:08:00 PM EDT JESSY KAUR A Patient discharged. Emergency Attender: Miah 5T-EMERG 04/29/2019 10:44:00 LEG SWELLI NG [facility] - [facility] AM EDT - 04/29/2019 [facility] 01:45:00 PM EDT LEG SWELLING Patient discharged. Emergency Attender: Miah 5T-EMERG 04/21/2019 TOOTH/GUM ACHE S - [facility] 04:33:00 PM EDT - [facility] 04/21/2019 06:05:00 PM EDT TOOTH/GUM ACHE Patient discharged. Emergency Attender: Rashaun 5T-EMERG 03/21/2019 THROAT PAIN S [facility] Ruvo 08:10:00 AM EDT - "POSSIBLE STREP Ve [facility] 03/21/2019 THROAT" 09:46:00 AM EDT THROAT PAIN "POSSIBLE STREP THROAT" Emergency Attender: Howard 5T-EMERG 01/29/2019 LEFT THUMB MHS - [facility] Cheryl 07:30:00 PM EST - INJURY [facility] 01/29/2019 09:48:00 PM EST LEFT THUMB INJURY [facility] 12:00:00 AM EDT [facility] [place] [facility] [employer]) Emergency H 06/16/2018 [facility] 03:05:00 PM EDT Medical C enter Emergency H 05/16/2018 [facility] 10:42:00 AM EDT Medical C enter Emergency H 04/24/2018 [facility] 10:23:00 AM EDT Medical C enter Emergency H 10/23/2017 [facility] 11:21:00 AM EST Medical C enter [facility] 07/25/2017 eCW2 ([facility] 12:00:00 AM EDT [facility] [place] [facility] [employer]) [facility] 04/19/2017 eCW2 ([facility] 12:00:00 AM EDT Par [facility] - [place] [facility] [employer]) [facility] 02/11/2017 eCW2 ([facility] 12:00:00 AM EDT [facility] [place] [facility] [employer]) [facility] 02/09/2017 eCW2 ([facility] 12:00:00 AM EDT [facility] [place] [facility] [employer]) OutpatientOFFICE Attender: [facility] 12/04/2016 NE XTGEN ([facility] /OUTPATIENT [place] [facility] 12:50:00 PM EST [facility] Medical VISIT, EST - 12/04/2016 Center) 12:50:00 PM EST [facility] 11/20/2016 eCW2 ([facility] 12:00:00 AM EST [facility] [place] [facility] [employer]) OutpatientOFFICE Attender: [facility] 11/01/2016 NEXTGEN ([facility] /OUTPATIENT [place] [facility] 11:02:00 AM EST [facility] Medical VISIT, EST - 11/01/2016 Center) 11:02:00 AM EST OutpatientOFFICE Attender: [facility] 10/02/2016 NEXTGEN ([facility] /OUTPATIENT [facility] 09:14:00 AM EST [facility] Medical VISIT, EST - 10/02/2016 Center) 09:14:00 AM EST OutpatientOFFICE Attender: [facility] 09/25/2016 NEXTGEN ([facility] /OUTPATIENT [facility] 08:49:00 AM EDT [facility] Medical VISIT, EST - 09/25/2016 Center) 08:49:00 AM EDT [facility] 08/14/2016 eCW2 ([facility] 12:00:00 AM EDT Par [facility] - [place] [facility] [employer]) Attender: [facility] 07/25/2016 NEXTGE N ([facility] 10:15:00 AM EDT [facility] M edical - 07/25/2016 Center) 10:15:00 AM EDT OutpatientOFFICE Attender: [facility] 07/09/2016 NEXTGEN ([facility] /OUTPATIENT [facility] 02:30:00 PM EDT [facility] Medical VISIT, EST - 07/09/2016 Center) 02:30:00 PM EDT [facility] 07/02/2016 eCW2 ([facility] 12:00:00 AM EDT Par [facility] - [place] [facility] [employer]) [facility] 02/10/2016 eCW2 ([facility] 12:00:00 AM EDT [facility] [place] [facility] [employer] 02/10/2016 eCW2 ([facility] 12:00:00 AM EDT [facility] [place] [facility] [employer]) [facility] 02/09/2016 eCW2 ([facility] 12:00:00 AM EDT Par [facility]hood - [place] [facility] [employer]) [facility] 02/09/2016 eCW2 ([facility] 12:00:00 AM EDT Par enthood - [place] [facility] [employer]) [facility] 08/30/2015 eCW2 ([facility] 12:00:00 AM EDT Par enthood - [place] [facility] [employer]) OutpatientOFFICE Attender: [facility] 07/21/2015 NEXTGEN ([facility] [place] [facility] 01:20:00 PM EDT [facility] Medical VISIT, EST - 07/21/2015 Center) 01:20:00 PM EDT OutpatientOFFICE Attender: [facility] 04/21/2015 NEXTGEN ([facility]OUTPATIENT [facility] 10:03:00 AM EDT [facility] Medical VISIT, EST - 04/21/2015 Center) 10:03:00 AM EDT OutpatientOFFICE [facility] 12/03/2014 NEXTGEN ([facility] 12:51:00 PM EST [facility] Medical VISIT, EST - 12/03/2014 Center) 12:51:00 PM EST OutpatientOFFICE Attender: [facility] 09/30/2014 [facility] [place] [facility] 03:02:00 PM EST [facility] Medical VISIT, EST - 09/30/2014 Center) 03:02:00 PM EST OutpatientOFFICE Attender: [facility] 09/06/2014 [facility] [facility] 10:53:00 AM EDT [facility] Medical VISIT, EST - 09/06/2014 Center) 10:53:00 AM EDT [facility] 08/04/2014 eCW2 ([facility] 12:00:00 AM EDT Par enthood - [place] [facility]) OutpatientOFFICE Attender: [facility] 07/08/2014 NEXTGEN ([facility] [facility] 12:35:00 PM EDT [facility] Medical VISIT, EST - 07/08/2014 Center) 12:35:00 PM EDT OutpatientOFFICE Attender: [facility] 02/02/2014 [facility] [facility] 03:17:00 PM EDT [facility] Medical VISIT, EST - 02/02/2014 Center) 03:17:00 PM EDT [facility] 08/06/2013 eCW2 ([facility] 12:00:00 AM EDT [facility] [place] [facility] [employer]) [facility] 07/31/2013 eCW2 ([facility] 12:00:00 AM EDT [facility] [place] [facility] [employer]) [facility] 07/01/2013 eCW2 ([facility] 12:00:00 AM EDT Par [facility]hood - [place] [facility] [employer]) [facility] 06/29/2013 eCW2 ([facility] 12:00:00 AM EDT Par [facility]hood - [place] [facility] [employer]) [facility] 06/29/2013 eCW2 ([facility] 12:00:00 AM EDT Par enthood - [place] [facility] [employer]) Attender: [facility] 12/26/2012 NEXTGE N ([facility] 01:01:00 PM EST [facility] Medical - 12/26/2012 Center) 01:01:00 PM EST OutpatientOFFICE Attender: [facility] 10/31/2012 NEXTGEN ([facility] 08:45:00 AM EST [facility] Medical VISIT, EST - 10/31/2012 Center) 08:45:00 AM EST Attender: [facility] 06/23/2012 NEXTG EN ([facility] 01:41:00 PM EDT [facility] - 06/23/2012 Center) 01:41:00 PM EDT Attender: [facility] 05/12/2012 NEXTG EN ([facility] 03:01:00 [facility]) 03:01:00 PM EDT Attender: [facility] 04/11/2012 NEXTGE N ([facility] 09:41:00 AM EDT [facility] - 04/11/2012 Center) 09:41:00 AM EDT [facility] 12/07/2011 eCW2 ([facility] 12:00:00 AM EST [facility] [place] [facility] [employer] 12/05/2011 eCW2 ([facility] 12:00:00 AM EST [facility] - [place] [facility] [employer]) Attender: [facility] 10/29/2011 NEXTGE N ([facility] 01:51:00 PM [facility] - 10/29/2011 Center) 01:51:00 PM EST Attender: [facility] 10/15/2011 NEXTGE N ([facility] 09:39:00 AM [facility] - 10/15/2011 Center) 09:39:00 AM EST [facility] 10/09/2011 [facility]CW[facility] 12:00:00 AM EST [facility] [facility] [employer]) [facility] 08/08/2011 eCW2 ([facility] 12:00:00 AM EDT [facility] - [facility] [facility]) [facility] 07/19/2011 eCW2 ([facility] 12:00:00 AM EDT [facility] - [facility] [facility]) [facility] 07/17/2011 eCW2 ([facility] 12:00:00 AM EDT [facility] - [facility] [facility] [employer]) [facility] 07/09/2011 eCW2 ([facility] 12:00:00 AM EDT [facility] [facility]) Attender: [facility] 10/06/2009 NEXTGE N ([facility] 11:50:00 AM [facility] - 10/06/2009 Center) 11:50:00 AM EST Immunizations Vaccine Date Status Description Data Source(s) Note that this 02/12/2017 completed [facility] vaccine name has 08:10:00 PM [facility] changed. See also Td (adult). It is not adsorbed. IIV3. This vaccine 10/31/2012 completed flu (split) NEXTGEN ( [facility] is one of two 12:00:00 AM EST preservative free, 3 [facility] which replace CVX yrs or older Center) 15, influenza, split virus. Source: New Immunization Record meningococcal MCV4P 04/11/2012 12:00:00 completed MCV4 (11-55 yr s) NEXTGEN ([facility]) Source: New Immunization Record HPV, quadrivalent 04/11/2012 12:00:00 AM EDT completed HPV NEXTGEN ([facility]) Source: New Immunization Record Tdap 10/06/2009 12:00:00 AM EST completed Tdap N EXTGEN ([facility]) Source: New Immunization Record IIV3. This is one of 10/06/2009 12:00:00 completed Flu (3 yrs or NEXTGEN ([facility] two codes replacing AM EST older) [facility] Medical CVX 15, which is Center) being retired. Source: New Immunization Record This code is being retired. It completed Flu (split ) (3 yrs or NEXTGEN ([facility] will still be found in older older) [facility] immunization records. It Jesus ter) included both preservative free and non-preservative free. Source: New Immunization Record No Known Immunizations completed eCW2 ([facility]) Medications Medication Brand Start Product Dose Route Administrative Pharmacy [facility] Indications Reaction Description Data Name Date Form Instructions Instructions Source(s) medroxyprog Depo-P INTRAM active 1 ML NEXTGEN esterone rovera 2020 mL USCULA medroxyproge ([facility] acetate 150 150 12:00: R sterone [facility] ephs MG/ML mg/mL 00 AM acetate 150 Medic al Injectable intram EDT MG/ML [place] ) Suspension uscula Injection [Depo-Prove r [Depo-Soft Crab Shedder ra] suspen a] Depo-Soft Crab Shedder edith a 150 mg/mL intramuscul ar suspension 1 ML Depo-P INTRAM active 1 ML NEXTGEN medroxyprog rovera 2020 mL USCULA medroxypr john ( esterone 150 12:00: R sterone [facility] acetate 150 mg/mL 00 AM acetate 150 Medical MG/ML intram EDT MG/ML [place]) Prefilled uscula Prefilled Syringe r Syringe [Depo-Prove syring [Depo-Prove r ra] e a] Depo-Soft Crab Shedder a 150 mg/mL intramuscul ar syringe 24 HR nicoti TRANSD active apply 1 NEX TGEN Nicotine ne 2019 {patc ERMAL patch by (David nt 0.875 MG/HR mg/24 12:00: h} transderma l [facility] Transdermal hr 00 AM route every Medical Patch daily EDT day and Center) nicotine 21 transd remove at mg/24 hr ermal bedtime daily patch transdermal patch Naproxen naprox 04/21/ 500 ORAL complet [facility] naproxen en 2019 mg ed Health 05:55: System 49 PM EDT Jonivasutiffanie Zithro 03/21/ TABLET 1 ORAL complet [facility] n 250 MG max 2018 {tab( ed Health Oral Tablet 250 mg 08:54: s)} Syst em [Zithromax] oral 03 AM Zithromax tablet EDT 250 mg oral tablet Do not take dairy products, antacids, or iron preparations within one hour of this medication.Finish all this medication un less otherwise directed by prescriber. Ibuprofen ibuprofen 03/21/2019 TABLET 1 {tab(s)} ORAL completed [facility] 600 MG Oral 600 mg oral 08:53:53 AM Health Tablet tablet EDT System ibuprofen 600 mg oral tablet Do not take this drug if you are pregnan t.It is very important that you take or use this exactly as directed. Do not skip d oses or discontinue unless directed by your doctor.May cause drowsiness or dizziness .Obtain medical advice before taking any non-prescription drugs as some may affec t the action of this medication.Take with food or milk. Naproxen naproxen 01/29/2019 TABLET 1 {tab(s)} ORAL completed [facility] 500 MG 500 mg 09:28:42 PM Heal th Oral oral EST System Tablet tablet naproxen 500 mg oral tablet Check with your doctor before becoming p regnant.May cause drowsiness or dizziness.Obtain medical advice before t aking any non-prescription drugs as some may affect the action of this medication.Gareth e with food or milk. Levonorgestrel levonorgestrel 12/04/2016 1.00 ORAL completed take 1 NEXTGEN 1.5 MG Oral 1.5 mg tablet 12:00:00 AM {tbl} tablet by ([facility] Tablet EST oral route [facility] levonorgestrel once as so on Medical 1.5 mg tablet as possible Center) within 72 hours (3 days) after unprotected intercourse Albuterol 0.83 albuterol 12/04/2016 completed inhale 3 NEXTGEN MG/ML Inhalant sulfate 2.5 12:00:00 AM milliliter ([facility] Solution mg/3 mL (0.083 EST by [place] [facility] albuterol %) solution for [facility] sulfate 2.5 nebulization route 3 Center) mg/3 mL (0.083 times ever y %) solution for day as nebulization needed for symptom control Ortho {7 (Ethinyl 09/25/2016 completed O rtho NEXTGEN Tri-Cyclen Lo Estradiol 0.025 12:00:00 AM Tri-Cyclen ([facility] (28) 0.18 MG / EDT Lo 28 Day Louie hs mg/0.215 norgestimate Pack Med ical mg/0.25 mg-25 0.18 MG Oral Center) mcg tablet Tablet) / 7 (Ethinyl Estradiol 0.025 MG / norgestimate 0.215 MG Oral Tablet) / 7 (Ethinyl Estradiol 0.025 MG / norgestimate 0.25 MG Oral Tablet) / 7 (Inert Ingredients 1 MG Oral Tablet) } Pack Oxycodone oxyCODONE 5 mg T 1 ORAL completed [place] Hydrochloride 5 oral tablet A {tab(s re MG Oral Tablet B )} Healt h oxyCODONE 5 mg L Syste m oral tablet E T Paragard UNK active as directed eC W2 Intrauterine (Planne d [facility] [place] [employer]) aripiprazole 10 aripiprazole 10 1 completed [facility] MG Oral Tablet mg Tablet, Eugenia aripiprazole 10 Ordered By: Medical mg Tablet, Jessy [facility], [place] Ordered By: PMHNPDirections Jessy George, : 1 tablet oral PMHNPDirections daily : 1 tablet oral daily Doxycycline doxycycline 1 completed [facility] Monohydrate 100 monohydrate 100 Eugenia MG Oral Capsule mg Capsule, Medical doxycycline Ordered By: C enter monohydrate 100 Jessy George, mg Capsule, PMHNPDirections Ordered By: : 1 capsule Jessy George, oral twice a PMHNPDirections day : 1 capsule oral twice a day fluticasone 2 completed David nt propionate 50 Christopher s mcg/actuation Medica l spray,suspensio Cent er n, Ordered By: Jessy George PMHNPDirections : 2 spray nasal daily Loratadine 10 loratadine 10 1 completed [facility] MG Oral Tablet mg Tablet, Eugenia loratadine 10 Ordered By: Medical mg Tablet, Jessy George, [place] Ordered By: PMHNPDirections Jessy George, : 1 tablet oral PMHNPDirections daily every : 1 tablet oral morning PRN daily every NASAL morning PRN CONGESTION . NASAL CONGESTION . levonorgestrel Levonorgestrel 1 completed () 1.5 1.5 MG Oral Eugenia mg Tablet, Tablet Medical Ordered By: SHAYLEE Stinsonirections: 1 tablet oral daily Insurance Providers Payer name Policy type Policy ID Covered Covered libertarian's Policy P alma / Coverage libertarian ID relationship to Tapia Inf ormation type tapia MVP/HHP [id number] self [id number] MVP/HHP O [id number] 01 [id number] MVP [place] [id number] [place] [id number] HMO MVP/HHP O [id number] [place] [id number] SP [id number] HEALTH-MVP [facility] O [id number] STRATEGIES W [id number] 01 [id number] MVP Medicaid Medicaid [id number] 1 [id number] MVP/HHP O [id number] 01 [id number] MVP/HHP O [id number] [facility] O [id number] STRATEGIES Problems, Conditions, and Diagnoses Code Display Name Description Problem Type Effective Data Sour ce(s) Dates E66.9 Obesity Obesity Problem 11/20/2016 eCW2 (Planned 12:00:[address] [facility] [place] [employer]) [id number] Asthma Asthma Problem 10/31/2012 NEXTGEN ([facility] 12:00:[address] [facility]) Z71.89 Other specified OTHER SPECIFIED Diagnosis 04/29/2020 Oriana Bello counseling COUNSELING 01:43:00 PM Medical Cente r EDT Z71.6 Tobacco abuse TOBACCO ABUSE Diagnosis 04/29/2020 [facility] counseling COUNSELING 01:43:00 PM Medical Cente r EDT Z30.09 Encounter for ENCOUNTER FOR OTH Diagnosis 04/29/2020 Oriana Bello other general GENERAL CNSL AND 01:43:00 PM [facility] counseling and ADVICE ON EDT advice on CONTRACEPTION contraception Z48.01 Encounter for ENCOUNTER FOR Diagnosis 02/15/2020 [facility] change or removal CHANGE OR REMOVAL 11:30:00 PM Medical Center of surgical wound OF SURGICAL WOUND EDT dressing DRESSING Z68.43 Body mass index BODY MASS INDEX Diagnosis 10/21/2019 Oriana Bello (BMI) 50-59.9 , (BMI) 50.0-59.9, 09:25:00 AM [facility] adult ADULT EST Z59.9 Problem related to PROBLEM RELATED Diagnosis 10/21/2019 Yamila Bello housing and TO HOUSING AND 09:25:00 AM Medical Center economic ECONOMIC EST circumstances, CIRCUMSTANCES, unspecified UNSP Z32.01 Encounter for ENCOUNTER FOR Diagnosis 10/21/2019 [facility] tello test, TEST, 09:25:00 AM [facility] result positive RESULT POSITIVE EST Z72.0 Tobacco use TOBACCO USE Diagnosis 08/28/2019 [facility] [place] 02:30:00 PM Medical Cente r EDT F43.20 Adjustment ADJUSTMENT Diagnosis 08/28/2019 [facility] disorder, DISORDER, 02:30:00 PM [facility] UNSPECIFIED EDT F91.9 Conduct disorder, CONDUCT DISORDER, Diagnosis 08/28/2019 [facility] unspecified UNSPECIFIED 02:30:00 PM Medical [facility] ter EDT E66.9 Obesity, OBESITY, Diagnosis 08/11/2019 [facility] unspecified UNSPECIFIED 01:08:00 PM Medical [facility] ter EDT D72.829 Elevated white ELEVATED WHITE Diagnosis 08/11/2019 [facility] blood cell count, BLOOD CELL COUNT, 01:08:00 PM Medical Center unspecified UNSPECIFIED EDT E78.5 Hyperlipidemia, HYPERLIPIDEMIA, Diagnosis 08/11/2019 Oriana Bello unspecified UNSPECIFIED 01:08:00 PM Medical [facility] ter EDT F43.23 Adjustment ADJUSTMENT Diagnosis 08/04/2019 [facility] disorder with DISORDER WITH 07:23:00 PM Medical Center mixed anxiety and MIXED ANXIETY AND EDT depressed mood DEPRESSED MOOD M79.671 Pain in right foot Foot pain, Diagnosis 04/29/2019 [facility] [place] bilateral 10:44:00 AM [facility] LEG SWELLING LEG SWELLING Diagnosis 04/29/2019 [facility] - Moun t 10:44:00 AM [facility] M79.672 Pain in left foot Left foot pain Diagnosis 04/29/2019 [facility] [place] 10:44:00 AM [facility] TOOTH/GUM ACHE TOOTH/GUM ACHE Diagnosis 04/21/2019 [facility] - [place] 04:33:00 PM [facility] K08.89 Other specified Toothache Diagnosis 04/21/2019 [facility] disorders of teeth 04:33:00 PM Verno n and supporting EDT Hospital structures THROAT PAIN THROAT PAIN Diagnosis 03/21/2019 [facility] "POSSIBLE STREP "POSSIBLE STREP 08:10:00 AM Flore[place] non THROAT" THROAT" EDT Hospital J02.0 Streptococcal Pharyngitis due Diagnosis 03/21/2019 [facility] [place] pharyngitis to Streptococcus 08:10:00 AM [facility] pyogenes EDT Hospital J45.909 Unspecified Uncomplicated Diagnosis 01/29/2019 S - [place] t asthma, asthma 07:30:00 PM [facility] uncomplicated [facility] M79.645 Pain in left Pain of finger of Diagnosis 01/29/2019 [facility] finger(s) left hand 07:30:00 PM [facility] F17.200 Nicotine Nicotine Diagnosis 01/29/2019 [facility] dependence, dependence, 07:30:00 PM [facility] unspecified, uncomplicated [facility] Hospital uncomplicated LEFT THUMB INJURY LEFT THUMB INJURY Diagnosis 01/29/2019 [facility] 07:30:00 PM [facility] Diagnosis [facility] ([facility]) Surgeries/Procedures Procedure Description Date Indications Data Source(s) OFFICE/OUTPATIENT 04/29/2020 [facility] ( [facility] VISIT, EST 12:00:00 AM EDT Medical Cent er) - 04/29/2020 12:00:00 AM EDT URINE TEST 04/29/2020 [facility] ([facility] 12:00:00 AM EDT Medical [facility] er) - 04/29/2020 12:00:00 AM EDT OFFICE/OUTPATIENT 10/21/2019 [facility] ( [facility] VISIT, EST 12:00:00 AM EST Medical Cent er) - 10/21/2019 12:00:00 AM EST CHLAMYDIA, JUAN 09/08/2018 eCW2 (Planned 12:00:00 AM EDT [facility] [employer] [facility]) Test 09/08/2018 eCW2 (Planned 12:00:00 AM EDT [facility] [employer] [facility]) GONORRHEA, JUAN 09/08/2018 eCW2 (Planned 12:00:00 AM EDT [facility] [employer] [facility]) Urinalysis Dip 09/08/2018 eCW2 (Planned 12:00:00 AM EDT [facility] [employer] rated) HIV Rapid Test INSTI 09/08/2018 eCW2 (P lanned 12:00:00 AM EDT [facility] [employer] [facility]) URINE TEST 12/04/2016 NEXTGEN ([facility] 12:00:00 AM EST Medical Cent er) - 12/04/2016 12:00:00 AM EST OFFICE/OUTPATIENT 12/04/2016 NEXTGEN ([facility] aint [facility] VISIT, EST 12:00:00 AM EST Medical Cent er) - 12/04/2016 12:00:00 AM EST OFFICE/OUTPATIENT 11/01/2016 NEXTGEN ([facility] VISIT, EST 12:00:00 AM EST Medical Cent er) - 11/01/2016 12:00:00 AM EST OFFICE/OUTPATIENT 10/02/2016 NEXTGEN ([facility] a[facility] [place] VISIT, EST 12:00:00 AM EST Medical Cent er) - 10/02/2016 12:00:00 AM EST OFFICE/OUTPATIENT 09/25/2016 NEXTGEN ([facility] VISIT, EST 12:00:00 AM EDT Medical Cent er) - 09/25/2016 12:00:00 AM EDT URINE TEST 07/25/2016 [facility]EXTGEN ([facility] 12:00:00 AM EDT Medical Cent er) - 07/25/2016 12:00:00 AM EDT OFFICE/OUTPATIENT 07/09/2016 NEXTGEN ([facility] VISIT, EST 12:00:00 AM EDT Medical Cent er) - 07/09/2016 12:00:00 AM EDT OFFICE/OUTPATIENT 07/21/2015 NEXTGEN ([facility] VISIT, EST 12:00:00 AM EDT Medical Cent er) - 07/21/2015 12:00:00 AM EDT OFFICE/OUTPATIENT 04/21/2015 NEXTGEN ([facility] a[facility] VISIT, EST 12:00:00 AM EDT Medical Cent er) - 04/21/2015 12:00:00 AM EDT OFFICE/OUTPATIENT 12/03/2014 NEXTGEN ([facility] a[facility] VISIT, EST 12:00:00 AM EST Medical Cent er) - 12/03/2014 12:00:00 AM EST OFFICE/OUTPATIENT 09/30/2014 NEXTGEN (S a[facility] VISIT, EST 12:00:00 AM EST Medical Cent er) - 09/30/2014 12:00:00 AM EST OFFICE/OUTPATIENT 09/06/2014 NEXTGEN (S silvanant Eugenia VISIT, EST 12:00:00 AM EDT Medical Cent er) - 09/06/2014 12:00:00 AM EDT OFFICE/OUTPATIENT 07/08/2014 NEXTGEN (S aint [place] VISIT, EST 12:00:00 AM EDT Medical Cent er) - 07/08/2014 12:00:00 AM EDT OFFICE/OUTPATIENT 02/02/2014 NEXTGEN (S aint [place] VISIT, EST 12:00:00 AM EDT Medical Cent er) - 02/02/2014 12:00:00 AM EDT OFFICE/OUTPATIENT 10/31/2012 NEXTGEN (S wilfred Whites VISIT, EST 12:00:00 AM EST Medical Cent er) - 10/31/2012 12:00:00 AM EST SMEAR, WET [place], 06/23/2012 NEXTGEN (Yamila Bello SALINE/INK 12:00:00 AM EDT Medical Cent er) - 06/23/2012 12:00:00 AM EDT CHLAMYDIA CULTURE 06/23/2012 NEXTGEN (S wilfred Eugenia 12:00:00 AM EDT Medical Cent er) - 06/23/2012 12:00:00 AM EDT CULTURE SCREEN ONLY 06/23/2012 NEXTGEN ([facility]ello 12:00:00 AM EDT Medical Cent er) - 06/23/2012 12:00:00 AM EDT Results ID Date Data Source [id number] 04/29/2020 03:07:40 PM EDT NEXTG EN ([facility] [id number] [place]) Name Value Range Interpretation Description Data Sup porting Code Source(s) Document(s ) Choriogonadotropin negative Urine NEXTGEN ( test) ([facility] [Presence] in Urine Test [facility]) ID Date Data Source LIPID.[id number] 08/04/2019 11:55:00 PM EDT [facility] Name Value Range Interpretation Description Data Sup porting Code Source(s) Document(s ) Triglyceride < 150 <content [facility] [Mass/volume] in styleCode="Jez Eugenia Serum or Plasma d">Triglycerid Medical es Center </content>56 MG/DL<content styleCode="Kizzy lics"> (< 150 MG/DL)</conten t> Cholesterol -<200 <content [facility] [Mass/volume] in styleCode="Jez [facility] Serum or Plasma d">Cholesterol Medical </content>124 Center MG/DL<content styleCode="Kizzy lics"> (-<200 MG/DL)</conten t> UNK > 60 Below low normal <content Saint styleCode="Jez Whites d">HDL- Medical Cholesterol [place] </content>37 MG/DL L<content styleCode="Kizzy lics"> (> 60 MG/DL)</conten t> UNK < 100 <content Saint styleCode="Jez Bello d">LDL-Cholest [facility] hermes [place] </content>76 MG/DL<content styleCode="Kizzy lics"> (< 100 MG/DL)</conten t> ID Date Data Source MROUTINECCDA.[id number] 08/04/2019 11:55:00 PM EDT [facility] -0400 Name Value Range Interpretation Code Description Data Akua rce(s) Supporting Document(s ) UNK 4.2-5.8 <content [facility] styleCode="Bold" Medical Cente r >Hemoglobin A1C </content>5.5 %<content styleCode="Itali cs"> (4.2-5.8 %)</content> ID Date Data Source Liver 08/04/2019 11:25:00 PM EDT [facility] Profile.[id number] Name Value Range Interpretation Description Data Sup porting Code Source(s) Document(s ) Aspartate 14-36 <content [facility] aminotransferase styleCode="Bold"> Louie hs [Enzymatic Aspartate Medical activity/volume] Aminotransferase Center in Serum or Plasma (AST) </content>15 IU/L<content styleCode="Italic s"> (14-36 IU/L)</content> Alkaline 38-126 <content [facility] phosphatase styleCode="Bold"> Eugenia [Enzymatic Alkaline Medical activity/volume] Phosphatase (ALP) Cente r in Serum or Plasma </content>89 IU/L<content styleCode="Italic s"> (38-126 IU/L)</content> Bilirubin.total 0.2-1.3 <content [facility] [Mass/volume] in styleCode="Bold"> Louie hs Serum or Plasma Bilirubin Total Medical </content>0.3 Center MG/DL<content styleCode="Italic s"> (0.2-1.3 MG/DL)</content> Alanine 7-30 <content [facility] aminotransferase styleCode="Bold"> Louie hs [Enzymatic Alanine Medical activity/volume] Aminotransferase Center in Serum or Plasma (ALT) </content>11 IU/L<content styleCode="Italic s"> (7-30 IU/L)</content> UNK 0.0-0.3 <content [facility] styleCode="Bold"> Eugenia Bilirubin, Direct Medical </content>< 0.3 Center MG/DL<content styleCode="Italic s"> (0.0-0.3 MG/DL)</content> Albumin 3.5-5.0 <content [facility] [Mass/volume] in styleCode="Bold"> Louie hs Serum or Plasma Albumin Medical </content>3.9 Center G/DL<content styleCode="Italic s"> (3.5-5.0 G/DL)</content> ID Date Data Source HematologyRou.[id number] 08/04/2019 11:25:00 PM EDT David nt [facility] 0400 Name Value Range Interpretation Description Data Sup porting Code Source(s) Document(s ) Leukocytes 4.4-11.0 Above high <content [facility] [#/volume] in normal styleCode="Bold Eugenia Blood by ">White Blood Medical Automated count Cell Count Center </content>11.43 KCUMM H<content styleCode="Ital ics"> (4.4-11.0 KCUMM)</content > Hematocrit 36.0-46. <content [facility] [Volume 0 styleCode="Bold Eugenia Fraction] of ">Hematocrit Medical Blood by </content>39.3 Center Automated count %<content styleCode="Ital ics"> (36.0-46.0 %)</content> Erythrocytes 4.0-5.1 <content [facility] [#/volume] in styleCode="Bold Eugenia Blood by ">Red Blood Medical Automated count Cell Count Center </content>4.67 MCUMM<content styleCode="Ital ics"> (4.0-5.1 MCUMM)</content > Hemoglobin 12.3-16. <content [facility] [Mass/volume] in 0 styleCode="Bold Eugenia Blood ">Hemoglobin Medical </content>12.5 Center G/DL<content styleCode="Ital ics"> (12.3-16.0 G/DL)</content> Erythrocyte mean 32.0-37. Below low normal <content [facility] corpuscular 0 styleCode="Bold Eugenia hemoglobin ">Mean Corpus. Medical concentration Hgb Center [Mass/volume] by Concentration Automated count (MCHC) </content>31.8 G/DL L<content styleCode="Ital ics"> (32.0-37.0 G/DL)</content> Erythrocyte mean 80.0-100 <content [facility] corpuscular .0 styleCode="Bold Eugenia volume [Entitic ">Mean Medical volume] by Corpuscular Center Automated count Volume </content>84.2 FL<content styleCode="Ital ics"> (80.0-100.0 FL)</content> Erythrocyte mean 26.0-34. <content [facility] corpuscular 0 styleCode="Bold Eugenia hemoglobin ">Mean Medical [Entitic mass] Corposcular Center by Automated Hemoglobin count </content>26.8 PG<content styleCode="Ital ics"> (26.0-34.0 PG)</content> Erythrocyte 11.5-14. Above high <content [facility] distribution 5 normal styleCode="Bold Eugenia width [Ratio] by ">Red Cell Medical Automated count Distribution Center Width </content>17.1 % H<content styleCode="Ital ics"> (11.5-14.5 %)</content> Platelets 130-400 <content [facility] [#/volume] in styleCode="Bold Eugenia Blood by ">Platelet Medical Automated count Count Center </content>286 KCUMM<content styleCode="Ital ics"> (130-400 KCUMM)</content > Platelet mean 8.0-11.0 <content [facility] volume [Entitic styleCode="Kashmir Whites volume] in Blood ">Mean Platelet Medical by Automated Volume Center count </content>8.1 FL<content styleCode="Ital ics"> (8.0-11.0 FL)</content> UNK 0.0 <content [facility] styleCode="Bold Eugenia ">Nucleated Red Medical Blood Cell Center Count </content>0.00 KCUMM<content styleCode="Ital ics"> (0.0 KCUMM)</content > UNK 0 <content Saint styleCode="Bold Eugenia ">Nucleated Red Medical Blood Cell Center </content>0.0 /100<content styleCode="Ital ics"> (0 /100)</content> ID Date Data Source GFR(Creatinine).[id number] 08/04/2019 11:25:[address] [facility] 0-0400 Name Value Range Interpretation Code Description Data Akua rce(s) Supporting Document(s ) UNK > 60 <content [facility] styleCode="Bold"> Medical Cent er EGFR </content>95 GFR<content styleCode="Italic s"> (> 60 GFR)</content> ID Date Data Source [facility].[id number] 08/04/2019 11:25:00 PM EDT [facility] Name Value Range Interpretation Description Data Sup porting Code Source(s) Document(s ) Sodium 137-145 <content [facility] [Moles/volume] in styleCode="Bold"> [facility] Serum or Plasma Sodium Medical </content>142 Center MEQ/L<content styleCode="Italic s"> (137-145 MEQ/L)</content> Potassium 3.5-5.3 <content [facility] [Moles/volume] in styleCode="Bold"> [facility] Serum or Plasma Potassium Medical </content>4.2 Center MEQ/L<content styleCode="Italic s"> (3.5-5.3 MEQ/L)</content> Chloride 98-107 <content [facility] [Moles/volume] in styleCode="Bold"> Brody phs Serum or Plasma Chloride Medical </content>107 Center MEQ/L<content styleCode="Italic s"> (98-107 MEQ/L)</content> Calcium 8.4-10. <content [facility] [Mass/volume] in 2 styleCode="Bold"> Louie hs Serum or Plasma Calcium Medical </content>9.6 Center MG/DL<content styleCode="Italic s"> (8.4-10.2 MG/DL)</content> Glucose 74-106 <content [facility] [Mass/volume] in styleCode="Bold"> Louie hs Serum or Plasma Glucose Medical </content>104 Center MG/DL<content styleCode="Italic s"> (74-106 MG/DL)</content> Carbon dioxide, 22-30 <content [facility] total styleCode="Bold"> Eugenia [Moles/volume] in Carbon Dioxide Medical Serum or Plasma </content>23 Center MEQ/L<content styleCode="Italic s"> (22-30 MEQ/L)</content> UNK 7-17 <content [facility] styleCode="Bold"> Eugenia BUN </content>14 Medical MG/DL<content Center styleCode="Italic s"> (7-17 MG/DL)</content> Creatinine 0.5-1.3 <content [facility] [Mass/volume] in styleCode="Bold"> Louie hs Serum or Plasma Creatinine Medical </content>0.9 Center MG/DL<content styleCode="Italic s"> (0.5-1.3 MG/DL)</content> Albumin 3.5-5.0 <content [facility] [Mass/volume] in styleCode="Bold"> Louie hs Serum or Plasma Albumin Medical </content>3.9 Center G/DL<content styleCode="Italic s"> (3.5-5.0 G/DL)</content> UNK > 60 <content [facility] styleCode="Bold"> Eugenia EGFR </content>95 Medical GFR<content Center styleCode="Italic s"> (> 60 GFR)</content> Alanine 7-30 <content [facility] aminotransferase styleCode="Bold"> Louie hs [Enzymatic Alanine Medical activity/volume] Aminotransferase Center in Serum or Plasma (ALT) </content>11 IU/L<content styleCode="Italic s"> (7-30 IU/L)</content> Aspartate 14-36 <content [facility] aminotransferase styleCode="Bold"> Louie hs [Enzymatic Aspartate Medical activity/volume] Aminotransferase Center in Serum or Plasma (AST) </content>15 IU/L<content styleCode="Italic s"> (14-36 IU/L)</content> Alkaline 38-126 <content [facility] phosphatase styleCode="Bold"> [facility] [Enzymatic Alkaline Medical activity/volume] Phosphatase (ALP) Cente r in Serum or Plasma </content>89 IU/L<content styleCode="Italic s"> (38-126 IU/L)</content> Bilirubin.total 0.2-1.3 <content [facility] [Mass/volume] in styleCode="Bold"> Louie hs Serum or Plasma Bilirubin Total Medical </content>0.3 Center MG/DL<content styleCode="Italic s"> (0.2-1.3 MG/DL)</content> ID Date Data Source Urinalysis.[id number] 08/04/2019 11:18:00 PM EDT David [facility] 0 Name Value Range Interpretation Description Data Sup porting Code Source(s) Document(s ) Color of Urine YELLOW <content Saint styleCode="Jez Eugenia d">Color, Medical Urine Center </content>YELL OW <content styleCode="Kizzy lics"> (YELLOW )</content> Ketones NEGATIVE <content [facility] [Mass/volume] styleCode="Jez Eugenia in Urine by d">Urine Medical Test strip Ketone Center </content>NEGA TIVE MG/DL<content styleCode="Kizzy lics"> (NEGATIVE MG/DL)</conten t> UNK CLEAR <content Saint styleCode="Jez Whites d">Urine Medical Clarity Center </content>LOGAN R <content styleCode="Kizzy lics"> (CLEAR )</content> Specific 1.015-1.02 <content [facility] gravity of 5 styleCode="Jez Eugenia Urine by Test d">Urine Medical strip Specific Center [place] </content>1.02 0 <content styleCode="Kizzy lics"> (1.015-1.025 )</content> Hemoglobin NEGATIVE <content [facility] [Presence] in styleCode="Jez Eugenia Urine by Test d">Urine Blood Medical strip </content>NEGA Center TIVE <content styleCode="Kizzy lics"> (NEGATIVE )</content> UNK NEGATIVE <content Saint styleCode="Jez Eugenia d">Urine Medical Bilirubin Center </content>NEGA TIVE <content styleCode="Kizzy lics"> (NEGATIVE )</content> Glucose NEGATIVE <content [facility] [Mass/volume] styleCode="Jez Eugenia in Urine by d">Urine Medical Test strip Glucose Center </content>NEGA TIVE MG/DL<content styleCode="Kizzy lics"> (NEGATIVE MG/DL)</conten t> pH of Urine by 4.5-8.0 <content Saint Test strip styleCode="Jez Eugenia d">Urine pH Medical </content>5.5 Center <content styleCode="Kizzy lics"> (4.5-8.0 )</content> Protein NEGATIVE <content [facility] [Mass/volume] styleCode="Jez Eugenia in Urine by d">Urine Medical Test strip Protein Center </content>NEGA TIVE MG/DL<content styleCode="Kizzy lics"> (NEGATIVE MG/DL)</conten t> Urobilinogen 0.2-1.0 <content Saint [Units/volume] styleCode="Jez Eugenia in Urine by d">Urine Medical Test strip Urobilinogen Center </content>0.2 MG/DL<content styleCode="Kizzy lics"> (0.2-1.0 MG/DL)</conten t> Nitrite NEGATIVE <content [facility] [Presence] in styleCode="Jez Eugenia Urine by Test d">Urine Medical strip Nitrite Center </content>NEGA TIVE <content styleCode="Kizzy lics"> (NEGATIVE )</content> Leukocyte NEGATIVE <content Saint esterase styleCode="Jez Bello [Presence] in d">Urine Medical Urine by Test Leukocyte Center strip </content>NEGA TIVE <content styleCode="Kizzy lics"> (NEGATIVE )</content> ID Date Data Source CHMROUTINECCDA.[id number] 08/04/2019 11:18:00 PM EDT David nt [facility] -0400 Name Value Range Interpretation Description Data Sup porting Code Source(s) Document(s ) Cannabinoids <content Saint [Presence] in styleCode="Jez Bello Urine by Screen d">Cannabinoid Medical method >50 ng/mL s Center </content>NEGA TIVE NG/ML (Reference Range: not available)<br/ > ID Date Data Source [id number] 04/29/2019 01:15:00 PM EDT [facility] EXAM:RIGHT FOOT HISTORY : Pain and swe lling;COMPARISON : None availableTECHNIQUE: AP,oblique and Lateral. FINDINGS: Ther e is no evidence of fracture,dislocation or significant arthritic changes. There is minimal right hallux valgus and tiny calcaneal spur. No soft tissue abnormal ities are noted.IMPRESSION:Minimal hallux valgus and tiny calcaneal spur.. Name Value Range Interpretation Code Description Data Akua rce(s) Supporting Document(s ) ID Date Data Source [id number] 04/29/2019 01:04:00 PM EDT [facility] EXAM:LEFT FOOT HISTORY : Pain and swel ling;COMPARISON : NoneTECHNIQUE: AP,oblique and Lateral. FINDINGS: There is no evid ence of fracture,dislocation or significant articular abnormality. No soft tissue a bnormalities are noted.IMPRESSION:Negative study. Name Value Range Interpretation Code Description Data Akua rce(s) Supporting Document(s ) ID Date Data Source [id number] 03/21/2019 08:42:[address] [facility] Name Value Range Interpretation Description Data Sup porting Code Source(s) Document(s ) Strep Group Positive Abnormal (applies Strep Group A [place] A Direct to non-numeric Direct Ant[facility] Health Sys tem Antigen results) Method: ImmunochromatographicRapid Strep Grp A preliminary test only!!! Final result will be confirmed by culture. ID Date Data Source [id number] 01/29/2019 08:23:00 PM [facility] EXAM: XR Left Hand Complete, 3 or more Views EXAM DATE/TIME: 01/29/2019 8:28 PM CLINICAL HISTORY: 28 years old, female; Visit reason: Thumb pain; TECHNIQUE: XR Left hand 3 or more views. COMPARISON: No relevant prior studies available. FINDINGS: Bones/joints: Normal. Soft t issues: Normal. IMPRESSION: No fractures or dislocations. Name Value Range Interpretation Code Description Data Akua rce(s) Supporting Document(s ) Procedure Social History Code Duration Value Status Description Data Source(s ) Caffeine Use 04/29/2020 completed NEXTGEN (David nt Details 12:00:00 AM [facility] EDT [place]) Smoking 04/29/2020 Unknown if ever completed Unknown if ever NEXT GEN ([facility] 12:00:00 AM smoked smoked [facility] EDT [place]) Smoking 02/16/2020 Daily Smoker completed Daily Smoker [facility] 01:[facility]:00 AM [facility] EDT Smoking 02/15/2020 Daily Smoker completed Daily Smoker [facility] 11:46:00 PM [facility] Cent[facility] r EDT 10/21/2019 Occasional completed Occasional NEXTGEN ([facility] 12:00:00 AM cigarette smoker cigarette smoker [facility] EST Center) Smoking 08/28/2019 Occasional completed Occasional [facility] 02:53:00 PM Smoker Smoker [facility] Cent[facility] EDT Smoking 08/28/2019 Occasional completed [facility]ional [facility] 02:52:00 PM Smoker Smoker [facility] EDT Smoking 08/05/2019 Daily Smoker completed Daily Smoker [facility] 06:40:00 AM [facility] Cent[facility] EDT Smoking 08/05/2019 Daily Smoker completed Daily Smoker [facility] 05:23:00 AM [facility] Cent[facility] EDT Smoking 08/04/2019 Daily Smoker completed Daily Smoker [facility] 07:52:00 PM [facility] Cent[facility] r EDT Smoking 08/04/2019 Daily Smoker completed Daily Smoker [facility] 07:39:00 PM [facility] Cent[facility] r EDT Smoking 01/02/2019 Occasional completed Occasional [facility] 10:53:00 AM Smoker Smoker [facility] EST Smoking 01/02/2019 Occasional completed Occasional [facility] 10:23:00 AM Smoker Smoker [facility] Cent[facility] EST Alcohol Use completed [facility]) Smoking Unknown if ever completed Unknown if ever [facility] smoked smoked Medical Center Smoking Current Smoker completed Current Smoker eCW2 ( [facility]) Vital Signs ID Date Data Source UNK Name Value Range Interpretation Code Description Data Source(s) Oxygen saturation 97 % 97 % NEXTGEN ([facility] in Arterial [facility] by Pulse oximetry Center) Body mass index 49.14 kg/m2 Overweight 49.14 kg/m2 NEXTGEN ([facility] (BMI) [Ratio] [facility]) Respiratory rate 20 /min 20 /min [facility] ([facility]) Body temperature 37.06 Denisa 37.06 Denisa [facility] ([facility]) Heart rate 86 /min 86 /min [facility] ([facility]) Diastolic blood 86 mm[Hg] 86 mm[Hg] [facility] ( [facility] pressure [employer]) Systolic blood 113 mm[Hg] 113 mm[Hg] [facility] ([facility]) Body weight 125.827 kg 125.827 kg [facility] ([facility]) Body height 160.02 cm 160.02 cm [facility] ([facility]) Body temperature 36.713940 36.643823 Denisa [facility] Respiratory rate 18 /min 18 /min [facility] Oxygen saturation 97 % 97 % [facility] by Pulse oximetry Heart rate 86 /min 86 /min [facility] Diastolic blood 76 mm[Hg] 76 mm[Hg] [facility] Systolic blood 128 mm[Hg] 128 mm[Hg] [facility] Body temperature 36.284612 36.659254 Denisa [facility] Respiratory rate 18 /min 18 /min [facility] Oxygen saturation 98 % 98 % [facility] J [facility] in [facility] by Pulse oximetry Heart rate 90 /min 90 /min [facility] Diastolic blood 76 mm[Hg] 76 mm[Hg] [facility] Systolic blood 138 mm[Hg] 138 mm[Hg] [facility] Oxygen saturation 96 % 96 % NEXTGEN ([facility] in Arterial blood [facility] Pulse oximetry Center) Body mass index 50.13 kg/m2 Overweight 50.13 kg/m2 NEXTGEN ([facility] (BMI) [Ratio] [facility]) Respiratory rate 20 /min 20 /min [facility] ([facility]) Body temperature 36.83 Denisa 36.83 Denisa [facility] ([facility]) Heart rate 73 /min 73 /min [facility] ([facility]) Diastolic blood 63 mm[Hg] 63 mm[Hg] [facility] ( [facility] pressure [employer]) Systolic blood 90 mm[Hg] 90 mm[Hg] [facility] ([facility]) Body weight 128.367 kg 128.367 kg [facility] ([facility]) Body height 160.02 cm 160.02 cm [facility] ([facility]) Heart rate 101 /min 101 /min [facility] Diastolic blood 83 mm[Hg] 83 mm[Hg] [facility] Systolic blood 121 mm[Hg] 121 mm[Hg] [facility] Body temperature 35.740465 35.447327 Denisa [facility] Respiratory rate 20 /min 20 /min [facility] Heart rate 80 /min 80 /min [facility] Diastolic blood 79 mm[Hg] 79 mm[Hg] [facility] Systolic blood 119 mm[Hg] 119 mm[Hg] [facility] Heart rate 105 /min 105 /min [facility] Heart rate 97 /min 97 /min [facility] Diastolic blood 72 mm[Hg] 72 mm[Hg] [facility] Systolic blood 98 mm[Hg] 98 mm[Hg] [facility] Diastolic blood 90 mm[Hg] 90 mm[Hg] [facility] Systolic blood 113 mm[Hg] 113 mm[Hg] [facility] Body temperature 35.299987 35.831122 Denisa [facility] Respiratory rate 19 /min 19 /min [facility] Heart rate 96 /min 96 /min [facility] Diastolic blood 79 mm[Hg] 79 mm[Hg] [facility] Systolic blood 108 mm[Hg] 108 mm[Hg] [facility] Medical Center Body temperature 36.074394 36.890234 [facility] Respiratory rate 20 /min 20 /min [facility] Heart rate 68 /min 68 /min [facility] Diastolic blood 87 mm[Hg] 87 mm[Hg] [facility] pressure Medical Center Systolic blood 130 mm[Hg] 130 mm[Hg] [facility] pressure Medical [place] Body temperature 36.536070 36.004[address] [facility] Respiratory rate 21 /min 21 /min [facility] Body temperature 36.313088 36.467210 [facility] Respiratory rate 19 /min 19 /min [facility] Body weight 126.212340 126.737974 kg [facility] Measured kg Medical Center Body temperature 36.140294 36.053561 [facility] Respiratory rate 18 /min 18 /min [facility] Heart rate 82 /min 82 /min [facility] Diastolic blood 74 mm[Hg] 74 mm[Hg] [facility] Systolic blood 106 mm[Hg] 106 mm[Hg] [facility] Oxygen saturation 96 % 96 % [facility] in Arterial blood Medical Center by Pulse oximetry Body temperature 36.550997 36.037493 [facility] Respiratory rate 18 /min 18 /min [facility] Heart rate 78 /min 78 /min [facility] Diastolic blood 68 mm[Hg] 68 mm[Hg] [facility] Systolic blood 115 mm[Hg] 115 mm[Hg] [facility] Oxygen saturation 98 % 98 % [facility] in Arterial blood [facility] Center by Pulse oximetry Body temperature 36.196165 36.170837 [facility] Respiratory rate 18 /min 18 /min [facility] Heart rate 89 /min 89 /min [facility] Diastolic blood 58 mm[Hg] 58 mm[Hg] [facility] Medical Center Systolic blood 111 mm[Hg] 111 mm[Hg] [facility] Medical Center Oxygen saturation 98 % 98 % [facility] in Arterial blood Medical Center by Pulse oximetry Body temperature 36.638994 36.418264 Denisa [facility] Respiratory rate 18 /min 18 /min [facility] Heart rate 107 /min 107 /min [facility] Diastolic blood 86 mm[Hg] 86 mm[Hg] [facility] pressure Medical Center Systolic blood 110 mm[Hg] 110 mm[Hg] [facility] Center Oxygen saturation 99 % 99 % [facility] by Pulse oximetry Body temperature 36.235608 36.361079 Denisa [facility] Respiratory rate 17 /min 17 /min [facility] Heart rate 77 /min 77 /min [facility] Diastolic blood 73 mm[Hg] 73 mm[Hg] [facility] Center Systolic blood 123 mm[Hg] 123 mm[Hg] [facility] Medical Center Body weight 119.458478 119.811681 kg [facility] Oxygen saturation 98 % 98 % [facility] [place] [facility] by Pulse oximetry Body surface area 2.2 m2 2.2 m2 [facility] Derived from [facility] Sy[facility] m formula Body mass index 46 kg/m2 46 kg/m2 [facility] (BMI) [Ratio] [facility] Syst em Body weight 121.56 kg 121.56 [facility] Body height 162.56 cm 162.56 cm [facility] Health System Body temperature 97.8 [degF] 0 - 200 Normal (applies to 97.8 [degF ] [facility] non-numeric [facility] System results) Body temperature 36.5 Denisa 0 - 99.9 Normal (applies to 36.5 Denisa [facility] non-numeric [facility] System results) Diastolic blood 95 mm[Hg] 0 - 999 Above high normal 95 mm[Hg] [facility] pressure [facility] System Systolic blood 134 mm[Hg] 0 - 999 Normal (applies to 134 mm[Hg] [facility] pressure non-numeric Health System results) Deprecated Oxygen 98 % 0 - 999 Normal (applies to 98 % [facility] saturation in non-numeric Health Sys tem Capillary blood results) by Oximetry Respiratory rate 17 0 - 999 Normal (applies to 17 [facility] non-numeric [facility] results) Heart rate 97 0 - 999 Normal (applies to 97 [facility] non-numeric [facility] results) Body surface area 2.2 m2 2.2 m2 [facility] Derived from [facility] m formula Body mass index 46.6 kg/m2 46.6 kg/m2 [facility] (BMI) [Ratio] Health Syst Body weight 123.37 kg 123.37 kg [facility] Measured Health System Body height 162.56 cm 162.56 cm [facility] Health System Body temperature 98.2 [degF] 0 - 200 Normal (applies to 98.2 [degF ] [facility] non-numeric Health System results) Body temperature 36.7 Denisa 0 - 99.9 Normal (applies to 36.7 Denisa [facility] non-numeric Health System results) Diastolic blood 88 mm[Hg] 0 - 999 Above high normal 88 mm[Hg] [facility] pressure [facility] System Systolic blood 122 mm[Hg] 0 - 999 Normal (applies to 122 mm[Hg] [facility] pressure non-numeric Health System results) Deprecated Oxygen 99 % 0 - 999 Normal (applies to 99 % [facility] saturation in non-numeric Health Sys tem Capillary blood results) by Oximetry Respiratory rate 17 0 - 999 Normal (applies to 17 [facility] non[facility]numeric [facility] System results) Heart rate 88 0 - 999 Normal (applies to 88 [facility] non-numeric [facility] System results) Body temperature 36.6 Denisa 0 - 99.9 Normal (applies to 36.6 Denisa [facility] non-numeric Health System results) Body temperature 98 [degF] 0 - 200 Normal (applies to 98 [degF] [facility] non-numeric Health System results) Diastolic blood 80 mm[Hg] 0 - 999 Normal (applies to 80 mm[Hg] [facility] pressure non-numeric Health System results) Systolic blood 119 mm[Hg] 0 - 999 Normal (applies to 119 mm[Hg] [facility] pressure non-numeric Health System results) Deprecated Oxygen 100 % 0 - 999 Normal (applies to 100 % [facility] saturation in non-numeric Health Sys tem Capillary blood results) by Oximetry Heart rate 80 0 - 999 Normal (applies to 80 [facility] results) Last menstrual [facility] period start date Health System Body surface area 2.1 m2 2.1 m2 [facility] Derived from [facility] Sy[facility] m formula Body mass index 44.9 kg/m2 44.9 kg/m2 [facility] e (BMI) [Ratio] Health Syst em Body weight 118.84 kg 118.84 kg [facility] Measured Health System Body height 162.56 cm 162.56 cm [facility] Respiratory rate 16 0 - 999 Normal (applies to 16 [facility] non-numeric Health System results) Body weight 117.521504 117.880058 kg [facility] Measured kg Medical Center Body temperature 36.506000 36.445662 Denisa [facility] Respiratory rate 18 /min 18 /min [facility] Oxygen saturation 100 % 100 % [facility] osephs in Arterial blood Medical Center by Pulse oximetry Heart rate 89 /min 89 /min [facility] Diastolic blood 61 mm[Hg] 61 mm[Hg] [facility] pressure Medical Center Systolic blood 120 mm[Hg] 120 mm[Hg] [facility] pressure Medical Center Diastolic blood 59 mm[Hg] 59 mm[Hg] eCW2 ([facility]) Systolic blood 116 mm[Hg] 116 mm[Hg] eCW2 ([facility]) Body mass index 47.89 kg/m2 47.89 kg/m2 eCW2 ([facility] (BMI) [Ratio] [facility]) Body weight 279 [lb_av] 279 [lb_av] eCW2 ([facility]) Body height 64 [in_us] 64 [in_us] eCW2 ([facility]) Patient Treatment Plan of Care Planned Activity Planned Date Details Description Data Source (s) 24 HR Nicotine 0.875 MG/HR 04/29/2020 N EXTGEN ([facility] Transdermal Patch 12:00:00 AM [facility]) medroxyprogesterone acetate 04/29/2020 NEXTGEN ([facility] 150 MG/ML Injectable 12:00:00 AM [facility] Medical Suspension [Depo-Provera] Ce nter) 1 ML medroxyprogesterone 04/29/2020 NEX TGEN ([facility] acetate 150 MG/ML Prefilled 12:00:00 AM [facility] Syringe [Depo-Provera] Cente r) Naproxen 04/21/2019 [facility] 05:55:49 PM EDT System Azithromycin 250 MG Oral 03/21/2019 Mon [facility] Tablet [Zithromax] 08:54:03 AM EDT System Ibuprofen 600 MG Oral Tablet 03/21/2019 [facility] 08:53:53 AM EDT System Naproxen 500 MG Oral Tablet 01/29/2019 [facility] 09:28:42 PM EST System Albuterol 0.83 MG/ML Inhalant 12/04/2016 NEXTGEN ([facility] Solution 12:00:00 AM [facility]) Levonorgestrel 1.5 MG Oral 12/04/2016 N EXTGEN ([facility] Tablet 12:00:00 AM [facility]) Ortho Tri-Cyclen Lo (28) 0.18 09/25/2016 NEXTGEN ([facility] mg/0.215 mg/0.25 mg-25 mcg 12:00:00 AM EDT [facility]) Loratadine 10 MG Oral Tablet [facility] fluticasone propionate 50 Sa int [facility] spray,suspension, Ordered By: Jessy George PMHNPDirections: 2 spray nasal daily Doxycycline Monohydrate 100 [facility] MG Oral Capsule Medical Cent er aripiprazole 10 MG Oral [facility] Oxycodone Hydrochloride 5 MG [facility] Oral Tablet System levonorgestrel () 1.5 [facility] mg Tablet, Ordered By: [facility] TUAN SantoyoPDirections: 1 tablet oral daily
[2020-08-10 10:17] LABS: EPI CELLS 31 /uL (0-25.1); HYALINE CASTS 2 /uL (0-3.1); URINE APPEARANCE Turbid; URINE BACTERIA 441 /uL (0-1359); URINE BILIRUBIN Negative (NEGATIVE); URINE COLOR Yellow; URINE GLUCOSE (UA) Negative (NEGATIVE); URINE KETONE Negative (NEGATIVE); URINE LEUK ESTERASE Negative (NEGATIVE); URINE NITRITE Negative (NEGATIVE); URINE PROTEIN Trace (NEGATIVE); URINE RBC 13 /uL (0-23.9); URINE WBC 11 /uL (0-25.8)
[2020-08-10 10:23] LABS: URINE CRYSTALS PRESENT /hpf; YEAST NONE SEEN (NEGATIVE)
== END 2020-08-09 20:41 | disposition home or self-care (01) ==
LOC: JER 17:25
DX: R53.1 Weakness (principal); N93.8 Other specified abnormal uterine and vaginal bleeding
CPT/HCPCS: 36415; 80053; 81003; 84703; 85025; 85610; 86850; 86900; 86901; 99283-25

== ENCOUNTER 2021-12-12 13:24 | Emergency (ER) | payer OTHER ==
[2021-12-12 13:37] VITALS: BP 100/60; PULSE 80; TEMP 98; BMI 41.1
[2021-12-12] MEDS ORDERED: ACETAMINOPHEN 325 MG TABLET (FP) PO ONE (14:57)
[2021-12-12 15:36] LABS: HCG,QUALITATIVE URINE Positive
[2021-12-12 15:40] LABS: EPI CELLS 16 /uL (0-25.1); HYALINE CASTS 6 /uL (0-3.1); URINE APPEARANCE CLEAR; URINE BACTERIA 359 /uL (0-1359); URINE BILIRUBIN NEGATIVE (NEGATIVE); URINE COLOR YELLOW; URINE GLUCOSE (UA) NEGATIVE (NEGATIVE); URINE KETONE NEGATIVE (NEGATIVE); URINE LEUK ESTERASE 2+ (NEGATIVE); URINE NITRITE NEGATIVE (NEGATIVE); URINE PROTEIN NEGATIVE (NEGATIVE); URINE RBC 6 /uL (0-23.9); URINE WBC 125 /uL (0-25.8)
[2021-12-12] MEDS ORDERED: ACETAMINOPHEN 325 MG TABLET (FP) ONE (15:44)
[2021-12-12 16:56] LABS: BASO % 0.6 % (0-2.0); EOS % 3.1 % (0-4.5); HEMATOCRIT 41.9 % (32.4-45.2); HEMOGLOBIN 13.7 GM/dL (10.7-15.3); LYMPH % 40.8 % (8-40); MCH 30.4 pg (25.7-33.7); MCHC 32.7 g/dl (32.0-36.0); MEAN CELL VOLUME 93.1 fl (80-96); MEAN PLT VOLUME 6.7 fl (7.5-11.1); MONO % 5.4 % (3.8-10.2); NEUT % 50.1 % (42.8-82.8); PLATELET COUNT 267 10^3/uL (134-434); RBC 4.51 M/mm3 (3.60-5.2); RDW 15.9 % (11.6-15.6); WHITE BLOOD COUNT 5.8 K/mm3 (4.0-10.0)
[2021-12-12 17:16] LABS: BLOOD UREA NITROGEN 5.4 mg/dL (7-18); CALCIUM 9.3 mg/dL (8.5-10.1)
[2021-12-12 17:18] LABS: ALBUMIN 3.5 g/dl (3.4-5.0)
[2021-12-12 17:20] LABS: BILIRUBIN,TOTAL 0.5 mg/dL (0.2-1); CREATININE 0.7 mg/dL (0.55-1.3); TOT PROT 7.5 g/dl (6.4-8.2)
== END 2021-12-12 19:50 | disposition home or self-care (01) ==
LOC: JER 13:24
DX: K80.20 Calculus of gallbladder without cholecystitis without obstruction (principal); N39.0 Urinary tract infection, site not specified; O36.80X0 Pregnancy with inconclusive fetal viability, not applicable or unspecified
CPT/HCPCS: 36415; 76705-TC; 76817-TC; 80053; 81003; 83690; 84702; 84703; 85025; 99285-25

== ENCOUNTER 2021-12-27 14:49 | Emergency (ER) | payer OTHER ==
[2021-12-27 15:10] VITALS: BP 114/79; PULSE 96; TEMP 99.2; BMI 38.7
[2021-12-27 17:45] LABS: EPI CELLS >36 /uL (0-25.1); HYALINE CASTS 19 /uL (0-3.1); PH,URINE 5.5 (5.0-8.0); URINE APPEARANCE CLOUDY; URINE BACTERIA 4181 /uL (0-1359); URINE BILIRUBIN 1+ (NEGATIVE); URINE COLOR DK YELLOW; URINE GLUCOSE (UA) NEGATIVE (NEGATIVE); URINE KETONE 2+ (NEGATIVE); URINE LEUK ESTERASE TRACE (NEGATIVE); URINE NITRITE NEGATIVE (NEGATIVE); URINE PROTEIN 1+ (NEGATIVE); URINE RBC 17 /uL (0-23.9); URINE WBC 229 /uL (0-25.8)
[2021-12-27 18:06] LABS: URINE CRYSTALS NEGATIVE /hpf
[2021-12-27 18:09] LABS: BASO % 0.3 % (0-2.0); EOS % 0.7 % (0-4.5); HEMATOCRIT 40.1 % (32.4-45.2); HEMOGLOBIN 13.3 GM/dL (10.7-15.3); LYMPH % 37.5 % (8-40); MCH 30.9 pg (25.7-33.7); MCHC 33.2 g/dl (32.0-36.0); MEAN CELL VOLUME 93.2 fl (80-96); MEAN PLT VOLUME 6.9 fl (7.5-11.1); MONO % 5.8 % (3.8-10.2); NEUT % 55.7 % (42.8-82.8); PLATELET COUNT 233 10^3/uL (134-434); RDW 15.3 % (11.6-15.6)
[2021-12-27 18:15] LABS: CALCIUM 9.3 mg/dL (8.5-10.1)
[2021-12-27 18:16] LABS: ALBUMIN 3.5 g/dl (3.4-5.0); BLOOD UREA NITROGEN 11.8 mg/dL (7-18)
[2021-12-27 18:19] LABS: CREATININE 0.6 mg/dL (0.55-1.3)
[2021-12-27 18:20] LABS: BILIRUBIN,TOTAL 0.5 mg/dL (0.2-1); TOT PROT 7.7 g/dl (6.4-8.2)
== END 2021-12-27 18:38 | disposition home or self-care (01) ==
LOC: JER 14:49
DX: O20.0 Threatened abortion (principal); O23.41 Unspecified infection of urinary tract in pregnancy, first trimester; Z3A.01 Less than 8 weeks gestation of pregnancy
CPT/HCPCS: 36415; 76817-TC; 80053; 81003; 84702; 85025; 87070; 87086; 87205; 87491; 87591; 99284-25

== ENCOUNTER 2021-12-29 16:28 | Emergency (ER) | payer OTHER ==
[2021-12-29 16:36] VITALS: BP 102/71; PULSE 66; TEMP 98; BMI 38.7
[2021-12-29] MEDS ORDERED: ONDANSETRON 4 MG TABLET PO ONE (16:53)
[2021-12-29] MEDS ORDERED: SODIUM CHLORIDE 0.9% 500 ML INFUS.BAG IV ONE (16:56)
[2021-12-29] MEDS ORDERED: ONDANSETRON 4 MG/2 ML VIAL IVPUSH ONE (16:56)
[2021-12-29] MEDS ORDERED: ONDANSETRON 4 MG/2 ML VIAL ONE ×2 (17:06→17:14)
== END 2021-12-29 20:50 | disposition home or self-care (01) ==
LOC: JER 16:28
PROC: 3E033NZ Introduction of Analgesics, Hypnotics, Sedatives into Peripheral Vein, Percutaneous Approach (ICD-10-PCS; principal; 2021-12-29)
DX: O20.0 Threatened abortion (principal); O46.90 Antepartum hemorrhage, unspecified, unspecified trimester; Z3A.01 Less than 8 weeks gestation of pregnancy
CPT/HCPCS: 36415; 76817-TC; 84702; 99284-25

== ENCOUNTER 2022-01-06 20:08 | Emergency (ER) | payer OTHER ==
[2022-01-06 20:33] VITALS: BP 100/67; PULSE 75; TEMP 98.5; BMI 38.7
[2022-01-06 21:37] LABS: EPI CELLS 28 /uL (0-25.1); HYALINE CASTS 4 /uL (0-3.1); PH,URINE 5.5 (5.0-8.0); URINE APPEARANCE CLOUDY; URINE BACTERIA 855 /uL (0-1359); URINE BILIRUBIN NEGATIVE (NEGATIVE); URINE COLOR YELLOW; URINE GLUCOSE (UA) NEGATIVE (NEGATIVE); URINE KETONE TRACE (NEGATIVE); URINE LEUK ESTERASE 1+ (NEGATIVE); URINE NITRITE NEGATIVE (NEGATIVE); URINE PROTEIN NEGATIVE (NEGATIVE); URINE WBC 116 /uL (0-25.8)
[2022-01-06 21:58] LABS: URINE CRYSTALS MODERATE /hpf; URINE RBC 848 /uL (0-23.9)
[2022-01-06 23:31] LABS: HEMATOCRIT 37.7 % (32.4-45.2); HEMOGLOBIN 12.8 GM/dL (10.7-15.3); RBC 4.04 M/mm3 (3.60-5.2); WHITE BLOOD COUNT 7.5 K/mm3 (4.0-10.0)
[2022-01-06 23:32] LABS: BASO % 0.5 % (0-2.0); MCH 31.7 pg (25.7-33.7); MCHC 33.9 g/dl (32.0-36.0); MEAN CELL VOLUME 93.4 fl (80-96); MEAN PLT VOLUME 6.4 fl (7.5-11.1); MONO % 5.9 % (3.8-10.2); NEUT % 55.6 % (42.8-82.8); PLATELET COUNT 205 10^3/uL (134-434); RDW 14.7 % (11.6-15.6)
[2022-01-06 23:54] LABS: CALCIUM 8.7 mg/dL (8.5-10.1)
[2022-01-06 23:55] LABS: ALBUMIN 3.2 g/dl (3.4-5.0)
[2022-01-06 23:58] LABS: CREATININE 0.6 mg/dL (0.55-1.3)
[2022-01-07] LABS: BILIRUBIN,TOTAL 0.2 mg/dL (0.2-1); TOT PROT 6.9 g/dl (6.4-8.2)
== END 2022-01-07 00:47 | disposition home or self-care (01) ==
LOC: JER 20:08
DX: N89.8 Other specified noninflammatory disorders of vagina (principal)
CPT/HCPCS: 36415; 76817-TC; 80053; 81003; 85025; 87086; 99284-25

== ENCOUNTER 2022-07-08 10:38 | Emergency (ER) | payer OTHER ==
[2022-07-08 10:54] VITALS: BP 94/65; PULSE 90; RESP 18; TEMP 98.5; BMI 42.9
[2022-07-08] MEDS ORDERED: SODIUM CHLORIDE 0.9% 500 ML INFUS.BAG IV ONE (11:39)
[2022-07-08] MEDS ORDERED: ACETAMINOPHEN 1000 MG/100 ML BAG IVPB ONE (11:39)
[2022-07-08] MEDS ORDERED: ACETAMINOPHEN INJECTION 100 ML IVPB ONE (11:54)
[2022-07-08 12:27] LABS: BASO % 0.7 % (0-2.0); EOS % 1.1 % (0-4.5); HEMATOCRIT 33.8 % (32.4-45.2); HEMOGLOBIN 11.7 GM/dL (10.7-15.3); LYMPH % 21.5 % (8-40); MCH 32.4 pg (25.7-33.7); MCHC 34.7 g/dl (32.0-36.0); MEAN CELL VOLUME 93.5 fl (80-96); MONO % 7.1 % (3.8-10.2); NEUT % 69.6 % (42.8-82.8); PLATELET COUNT 212 10^3/uL (134-434); RBC 3.61 M/mm3 (3.60-5.2); WHITE BLOOD COUNT 8.1 K/mm3 (4.0-10.0)
[2022-07-08 12:30] LABS: EPI CELLS >36 /uL (0-25.1); HYALINE CASTS 4 /uL (0-3.1); PH,URINE 6.5 (5.0-8.0); URINE APPEARANCE CLOUDY; URINE BACTERIA 3541 /uL (0-1359); URINE BILIRUBIN NEGATIVE (NEGATIVE); URINE COLOR YELLOW; URINE GLUCOSE (UA) NEGATIVE (NEGATIVE); URINE KETONE NEGATIVE (NEGATIVE); URINE LEUK ESTERASE 3+ (NEGATIVE); URINE NITRITE NEGATIVE (NEGATIVE); URINE PROTEIN TRACE (NEGATIVE); URINE RBC 21 /uL (0-23.9); URINE UROBILINOGEN 0.2 mg/dL (0.2-1.0); URINE WBC 282 /uL (0-25.8)
[2022-07-08 12:49] LABS: CALCIUM 8.6 mg/dL (8.5-10.1)
[2022-07-08 12:50] LABS: ALBUMIN 2.1 g/dl (3.4-5.0); BLOOD UREA NITROGEN 3.7 mg/dL (7-18)
[2022-07-08 12:53] LABS: CREATININE 0.5 mg/dL (0.55-1.3)
[2022-07-08 12:54] LABS: BILIRUBIN,TOTAL 0.3 mg/dL (0.2-1); TOT PROT 6.3 g/dl (6.4-8.2)
== END 2022-07-08 14:20 | disposition home or self-care (01) ==
LOC: JER 10:38
PROC: 3E0333Z Introduction of Anti-inflammatory into Peripheral Vein, Percutaneous Approach (ICD-10-PCS; principal; 2022-07-08)
DX: N30.00 Acute cystitis without hematuria (principal); R11.10 Vomiting, unspecified; R19.7 Diarrhea, unspecified
CPT/HCPCS: 36415; 80053; 81003; 85025; 87077; 87086; 87651; 99284-25

== ENCOUNTER 2022-08-07 06:10 | Inpatient (IN) | payer OTHER ==
[2022-08-07 06:52] VITALS: BMI 46.3
[2022-08-07] MEDS ORDERED: CITRIC ACID/SODIUM CITRATE 30 ML UNIT-DOSE CUP PO ONE (07:27)
[2022-08-07] MEDS ORDERED: ELECTROLYTE-148 SOLN 1,000 ML IV SCH (07:30)
[2022-08-07] MEDS ORDERED: ACETAMINOPHEN 325 MG TABLET (FP) PO PRN ×2 (07:44→10:25)
[2022-08-07] MEDS ORDERED: IBUPROFEN 600 MG TABLET (FP) PO PRN ×2 (07:44→10:25)
[2022-08-07] MEDS ORDERED: morphine SULFATE (PF) 1 MG/2 ML SYRINGE ONE (07:51)
[2022-08-07] MEDS ORDERED: PHENYLEPHRINE HCL 10 MG/1 ML SINGLE DOSE VIAL ONE (07:52)
[2022-08-07] MEDS ORDERED: SUCCINYLCHOLINE CHLORIDE 200 MG/10 ML SYRINGE ONE (07:55)
[2022-08-07] MEDS ORDERED: CLINDAMYCIN PHOSPHATE 900 MG/6 ML VIAL IVPB ONE (08:37)
[2022-08-07] MEDS ORDERED: OXYTOCIN 10 UNITS/ML VIAL ONE (09:44)
[2022-08-07] MEDS ORDERED: METHYLERGONOVINE MALEATE 0.2 MG/1 ML AMP IM PRN (10:25)
[2022-08-07] MEDS ORDERED: IBUPROFEN 800 MG/8 ML IJ IVPB PRN (10:26)
[2022-08-07] MEDS: OXYTOCIN 20 UNITS in 0.9% NS 20 UNIT/1,000 ML INFUS.BAG IV SCH ×2 (10:45→18:18)
[2022-08-07] MEDS ORDERED: OXYTOCIN 20 UNITS in 0.9% NS 20 UNIT/1,000 ML INFUS.BAG IV ONE (10:50)
[2022-08-07 10:51] LABS: CORD HCO3 24.1 mmHg (20-29); CORD PCO2 55.7 mmHg (30-78); CORD pH 7.254 (7.14-7.44)
[2022-08-07 10:54] LABS: CORD HCO3 23.2 mmHg (20-29); CORD PCO2 47.6 mmHg (30-78); CORD pH 7.306 (7.14-7.44)
[2022-08-07 10:58] LABS: CORD BASE EXCESS -2.6 mmol/L (0-2); CORD HCO3 22.8 mmHg (20-29); CORD PCO2 41.3 mmHg (30-78); CORD pH 7.359 (7.14-7.44)
[2022-08-07 11:00] LABS: CORD BASE EXCESS -1.9 mmol/L (0-2); CORD HCO3 24.5 mmHg (20-29); CORD PCO2 47.9 mmHg (30-78); CORD pH 7.326 (7.14-7.44)
[2022-08-07] MEDS ORDERED: ACETAMINOPHEN INJECTION 100 ML IVPB ONE (13:03)
[2022-08-07 13:44] LABS: OPIATES, URI NEGATIVE (NEGATIVE); URINE BARBITURATES NEGATIVE (NEGATIVE)
[2022-08-07 13:45] LABS: COCAINE, UR NEGATIVE (NEGATIVE); METHADONE, UR NEGATIVE (NEGATIVE); PHENCYCLIDINE,URINE NEGATIVE (NEGATIVE)
[2022-08-07] MEDS ORDERED: ACETAMINOPHEN 1000 MG/100 ML BAG IVPB ONE (13:45)
[2022-08-07 13:46] LABS: URINE BENZODIAZEPINES NEGATIVE (NEGATIVE)
[2022-08-07 13:51] LABS: URINE AMPHETAMINES NEGATIVE (NEGATIVE)
[2022-08-07] MEDS ORDERED: CLINDAMYCIN 600MG PREMIX IVPB 600 MG/50 ML BAG IVPB SCH (18:00)
[2022-08-07 18:39] VITALS: RESP 18
[2022-08-08] MEDS: SIMETHICONE 80 MG TAB.CHEW (FP) PO PRN ×4 (02:39→21:31)
[2022-08-08] MEDS: oxyCODONE HCL 5 MG TABLET PO PRN ×4 (02:39→21:31)
[2022-08-08 08:04] LABS: BASO % 0.4 % (0-2.0); EOS % 0.6 % (0-4.5); HEMATOCRIT 31.8 % (32.4-45.2); HEMOGLOBIN 10.8 GM/dL (10.7-15.3); LYMPH % 22.6 % (8-40); MCH 32.1 pg (25.7-33.7); MCHC 34.1 g/dl (32.0-36.0); MEAN CELL VOLUME 94.2 fl (80-96); MEAN PLT VOLUME 7.4 fl (7.5-11.1); MONO % 4.9 % (3.8-10.2); NEUT % 71.5 % (42.8-82.8); PLATELET COUNT 278 10^3/uL (134-434); RBC 3.37 M/mm3 (3.60-5.2); RDW 14.1 % (11.6-15.6); WHITE BLOOD COUNT 17.3 K/mm3 (4.0-10.0)
[2022-08-08] MEDS: ENOXAPARIN NA (PORCINE) 40 MG/0.4 ML DISP.SYRIN SQ SCH (09:51)
[2022-08-08] MEDS ORDERED: BISACODYL 10 MG SUPP.RECT RC PRN (10:25)
[2022-08-09] MEDS: oxyCODONE HCL 5 MG TABLET PO PRN ×4 (02:51→23:47)
[2022-08-09] MEDS: SIMETHICONE 80 MG TAB.CHEW (FP) PO PRN ×3 (02:51→17:52)
[2022-08-09] MEDS: ENOXAPARIN NA (PORCINE) 40 MG/0.4 ML DISP.SYRIN SQ SCH (10:58)
[2022-08-10] MEDS: oxyCODONE HCL 5 MG TABLET PO PRN (08:54)
[2022-08-10] MEDS: SIMETHICONE 80 MG TAB.CHEW (FP) PO PRN (08:56)
[2022-08-10 09:17] LABS: BASO % 0.3 % (0-2.0); EOS % 1.4 % (0-4.5); HEMATOCRIT 32.9 % (32.4-45.2); HEMOGLOBIN 11.1 GM/dL (10.7-15.3); LYMPH % 22.1 % (8-40); MCH 31.7 pg (25.7-33.7); MCHC 33.7 g/dl (32.0-36.0); MEAN PLT VOLUME 6.9 fl (7.5-11.1); MONO % 4.9 % (3.8-10.2); NEUT % 71.3 % (42.8-82.8); PLATELET COUNT 314 10^3/uL (134-434); RDW 14.3 % (11.6-15.6)
[2022-08-10] MEDS: ENOXAPARIN NA (PORCINE) 40 MG/0.4 ML DISP.SYRIN SQ SCH (10:31)
[2022-08-10 11:27] VITALS: BP 131/88; PULSE 77; TEMP 98.5
== END 2022-08-10 14:15 | disposition home or self-care (01) | DRG 540 ==
LOC: JLDR 06:10 → J3W 13:10
PROVIDERS: ADMIT Obstetrics & Gynecology; ATTEND Obstetrics & Gynecology
PROC: 10D00Z1 Extraction of Products of Conception, Low, Open Approach (ICD-10-PCS; principal; 2022-08-07)
PROC: 0UT50ZZ Resection of Right Fallopian Tube, Open Approach (ICD-10-PCS; 2022-08-07)
DX: O30.043 Twin pregnancy, dichorionic/diamniotic, third trimester (principal); O32.1XX0 Maternal care for breech presentation, not applicable or unspecified; O34.211 Maternal care for low transverse scar from previous cesarean delivery; O99.214 Obesity complicating childbirth; E66.01 Morbid (severe) obesity due to excess calories; Z3A.37 37 weeks gestation of pregnancy; Z37.2 Twins, both liveborn; Z30.2 Encounter for sterilization
CPT/HCPCS: 36415; 36600; 80048; 80307; 82803; 85025; 85610; 85730; 86780; 86850; 86900; 86901; 88305-TC; 88307-TC; C9803-CS; U0003; U0005